=== PATIENT | female | born 1945 | race Caucasian/White ===

== ENCOUNTER 2019-05-23 17:53 | Inpatient (IN) ==
--- NOTE | 2019-05-23 18:13 | Emergency Department Note ---
Altered Mental Status HPI - General Chief Complaint: Altered Mental Status Stated Complaint: Altered loc, distended abdomen, low sats Time Seen by Provider: 05/23/19 18:00 Source: EMS Mode of arrival: EMS Limitations: altered mental status - History of Present Illness HPI Narrative: Patient [facility] a [facility] for decreased LOC. She is being treated for UTI. She has had a low-grade fever and some hypoxia. She is very slow at answering questions and seems very lethargic. - Related Data Home Medications Medication Instructions Recorded Confirmed acetaminophen 500 mg tablet 1,000 mg PO QID PRN tab 07/08/16 05/21/19 albuterol sulfate 2 mg tablet 4 mg PO PRN tab 07/08/16 05/21/19 amlodipine 10 mg tablet See Rx Instructions PO .COMPLEX 07/08/16 05/21/19 atorvastatin 40 mg tablet 40 mg PO QDAY 07/08/16 05/21/19 cholecalciferol (vitamin D3) 2,000 4,000 unit PO QDAY 07/08/16 05/21/19 unit tablet hydrocodone 7.5 mg-acetaminophen 1 tab PO Q4H PRN tab 07/08/16 05/21/19 325 mg tablet pantoprazole 40 mg tablet,delayed 40 mg PO BID tab 07/08/16 05/21/19 release levothyroxine 100 mcg capsule 100 mcg PO QDAY 07/18/16 05/21/19 acyclovir 400 mg tablet 400 mg PO QDAY tab 05/22/17 05/21/19 citalopram 10 mg tablet 10 mg PO QDAY 05/22/17 05/21/19 fentanyl 12 mcg/hr transdermal 1 patch TRANSDERMA Q72H 05/21/19 05/21/19 patch nitrofurantoin 100 mg PO BID 05/21/19 05/21/19 monohydrate/macrocrystals 100 mg capsule potassium chloride 10 mEq 10 meq PO QDAY 05/21/19 05/21/19 tablet,extended release(part/cryst) prednisolone acetate (PF) 1 % eye 1 drp OPHTHALMIC QID 05/21/19 05/21/19 drops,suspension Previous Rx's Medication Instructions Recorded mycophenolate mofetil 500 mg tablet See Rx Instructions .ROUTE 01/22/19 .COMPLEX #180 tablet Allergies Allergy/AdvReac Type Severity Reaction Status Date / Time codeine Allergy Unknown Unknown Verified 05/23/19 17:53 latex Allergy Unknown Unknown Verified 05/23/19 18:01 morphine Allergy Unknown Unknown Verified 05/23/19 17:53 NSAIDS (Non-Steroidal Allergy Unknown Unknown Verified 05/23/19 18:02 Anti-Inflamma oxycodone Allergy Unknown Unknown Verified 05/23/19 18:02 Penicillins Allergy Unknown Unknown Verified 05/23/19 17:53 propoxyphene [From Darvon] Allergy Unknown Unknown Verified 05/23/19 17:53 Sulfa (Sulfonamide Allergy Unknown Unknown Verified 05/23/19 17:53 Antibiotics) bandaid adhesive Allergy Unknown Unknown Uncoded 05/21/19 11:12 Review of Systems All systems ED: reviewed and negative except as stated. Past Medical History - Past Medical History PMFSH Narrative: Medical History (Last Reviewed 05/21/19 @ 11:39 by Arie Hoffmann MD) Right hip pain (Acute) Polyarthralgia (Acute) Back pain (Chronic) Encounter for long-term current use of high risk medication (Acute) Pain, eye, right (Chronic) Seronegative rheumatoid arthritis (Chronic) Inflammatory eye disease (Chronic) Cataract (Chronic) Whiplash (Chronic) Soft tissue swelling (Chronic) Shingles (Chronic) Rheumatoid arthritis (Acute) Thrombocythemia (Chronic) Vitamin D deficiency (Chronic) Long-term use of high-risk medication (Chronic) Asthma (Chronic) Osteoarthritis (Acute) [place] (Chronic) Migraine headache (Chronic) Bleeding stomach ulcer (Chronic) Castleman's disease (Chronic) Past Surgical History (Last Reviewed 05/21/19 @ 11:32 by Arie Hoffmann MD) History of (Chronic) History of arthroscopic knee surgery (Chronic) History of carpal tunnel release (Chronic) History of knee replacement (Chronic) History of partial gastrectomy (Chronic) History of repair of right rotator cuff (Chronic) History of right shoulder replacement (Chronic) History of surgery (Chronic) History of surgery (Chronic) History of surgical fusion joint (Chronic) History of total knee arthroplasty (Chronic) Family History (Last Reviewed 05/21/19 @ 11:32 by Arie Hoffmann MD) Family/Other Cancer Brother Leukemia Family/Other Leukemia Family/Other Alcoholism Family/Other Asthma Mother Diabetes Father Heart disease Myocardial infarction Family/Other Stroke - Social History smoking status: Never smoker Physical Exam Limitations: altered mental status General appearance: lethargic, sleepy Head: atraumatic, normocephalic Eye: Present: normal appearance ENT: Present: mucous membranes dry Neck: Present: normal inspection Chest: Present: normal inspection Respiratory: Present: rales/crackles Cardiovascular: Present: regular rate, normal rhythm, normal heart sounds Abdominal: Present: soft. Absent: distention, tenderness Skin: Present: warm, dry Course Vital Signs Temperature 99.4 F H 05/23/19 17:54 Pulse Rate 93 H 05/23/19 17:54 Respiratory Rate 34 H 05/23/19 17:54 Blood Pressure 146/66 05/23/19 17:54 Pulse Oximetry (%) 88 L 05/23/19 17:54 Temperature 99.4 F H 05/23/19 17:54 Pulse Rate 88 05/23/19 21:31 Respiratory Rate 38 H 05/23/19 21:31 Blood Pressure 138/61 05/23/19 21:31 Pulse Oximetry (%) 93 05/23/19 21:31 Altered Mental Status - MDM Narrative Medical decision making narrative: This patient appears to be positive for influenza B. She does have a white c ount of 23,000 [address] a negative chest CT and negative abdominal CT. She is hypoxic off oxygen and requires oxygen to remain in the 90s. She will be admitted to the hospitalist service. - Lab Data Lab results reviewed: Yes I reviewed the patient's lab results. Result diagrams: 05/23/19 18:22 05/23/19 18:21 Lab Results 05/23/19 05/23/19 05/23/19 Range/Units 18:21 18:22 18:22 WBC 20.3 H (4.5-11.0) K/mcL RBC 3.56 L (4.00-5.20) M/mcL Hgb 9.7 L (12.0-15.0) g/dL Hct 30.1 L (36.0-48.0) % MCV 84.6 (80.0-100.0) fL MCH 27.4 (26.0-34.0) pg MCHC 32.4 (31.0-36.0) g/dL RDW 14.9 H (11.5-14.5) % Plt Count 522 H (140-440) K/mcL MPV 7.0 L (7.4-10.4) fL Gran % 88.0 H (38.0-78.0) % Lymph % (Auto) 3.8 L (15.5-49.0) % Slope % (Auto) 8.1 (1.0-12.0) % Eos % (Auto) 0.1 (0.0-7.0) % Baso % (Auto) 0 (0.0-2.0) % Gran # 17.8 H (1.8-8.0) K/mcL Lymph # (Auto) 0.8 L (1.5-4.8) K/mcL Slope # (Auto) 1.7 H (0.1-0.9) K/mcL Eos # (Auto) 0 (0.0-0.7) K/mcL Baso # (Auto) 0 (0.0-0.3) K/mcL Differential Comment VBG Lactic Acid 0.9 (0.5-2.0) mmol/L Sodium 133 (133-145) mmol/L Potassium 3.5 (3.3-5.1) mmol/L Chloride 95 L (96-108) mmol/L Carbon Dioxide 23 (22-30) mmol/L Anion Gap 15.0 (8-16) BUN 24 H (8-23) mg/dl Creatinine 0.5 L (0.6-1.1) mg/dl GFR Calculation 94 Glucose 122 H (70-105) mg/dL Calcium 8.4 L (8.6-10.4) mg/dl Total Bilirubin 0.3 (0.0-1.0) mg/dL AST 19 (0-37) U/l ALT 15 (0-40) U/l Alkaline Phosphatase 149 H (39-117) U/L Troponin T (0-0.03) ng/ml NT-Pro-B Natriuret Pep 655.0 H (0-450) pg/ml Total Protein 6.3 (5.9-8.4) gm/dL Albumin 2.7 L (3.2-5.2) gm/dL Globulin 3.6 (2.2-3.7) gm/dL Albumin/Globulin Ratio 0.8 L (1.0-2.3) Urine Color Urine Appearance Urine pH (5.0-9.0) Ur Specific [place] (1.000-1.035) Urine Protein (NEG) mg/dL Urine Glucose (UA) (NEG) mg/dL Urine Ketones (NEG) mg/dL Urine Occult Blood (<0.03) mg/dL Urine Nitrate (NEG) Urine Bilirubin (NEG) mg/dL Urine Urobilinogen (NEG) mg/dL Ur Leukocyte Esterase (NEG) /uL Urine RBC (0-1) /hpf Urine WBC (0-4) /hpf Ur Squamous Epith Cells (0-4) /hpf Urine Bacteria (0) /hpf Urine Mucus (0) /hpf Ur Culture Indicated? 05/23/19 05/23/19 Range/Units 18:23 18:30 WBC (4.5-11.0) K/mcL RBC (4.00-5.20) M/mcL Hgb (12.0-15.0) g/dL Hct (36.0-48.0) % MCV (80.0-100.0) fL MCH (26.0-34.0) pg MCHC (31.0-36.0) g/dL RDW (11.5-14.5) % Plt Count (140-440) K/mcL MPV (7.4-10.4) fL Gran % (38.0-78.0) % Lymph % (Auto) (15.5-49.0) % Slope % (Auto) (1.0-12.0) % Eos % (Auto) (0.0-7.0) % Baso % (Auto) (0.0-2.0) % Gran # (1.8-8.0) K/mcL Lymph # (Auto) (1.5-4.8) K/mcL Slope # (Auto) (0.1-0.9) K/mcL Eos # (Auto) (0.0-0.7) K/mcL Baso # (Auto) (0.0-0.3) K/mcL Differential Comment VBG Lactic Acid (0.5-2.0) mmol/L Sodium (133-145) mmol/L Potassium (3.3-5.1) mmol/L Chloride (96-108) mmol/L Carbon Dioxide (22-30) mmol/L Anion Gap (8-16) BUN (8-23) mg/dl Creatinine (0.6-1.1) mg/dl GFR Calculation Glucose (70-105) mg/dL Calcium (8.6-10.4) mg/dl Total Bilirubin (0.0-1.0) mg/dL AST (0-37) U/l ALT (0-40) U/l Alkaline Phosphatase (39-117) U/L Troponin T < 0.01 (0-0.03) ng/ml NT-Pro-B Natriuret Pep (0-450) pg/ml Total Protein (5.9-8.4) gm/dL Albumin (3.2-5.2) gm/dL Globulin (2.2-3.7) gm/dL Albumin/Globulin Ratio (1.0-2.3) Urine Color Yellow Urine Appearance Clear Urine pH 5.0 (5.0-9.0) Ur Specific [place] 1.024 (1.000-1.035) Urine Protein 100 A (NEG) mg/dL Urine Glucose (UA) Negative (NEG) mg/dL Urine Ketones Neg (NEG) mg/dL Urine Occult Blood 0.03 A (<0.03) mg/dL Urine Nitrate Neg (NEG) Urine Bilirubin Neg (NEG) mg/dL Urine Urobilinogen Neg (NEG) mg/dL Ur Leukocyte Esterase Neg (NEG) /uL Urine RBC 1 (0-1) /hpf Urine WBC 3 (0-4) /hpf Ur Squamous Epith Cells 1 (0-4) /hpf Urine Bacteria 0 (0) /hpf Urine Mucus Few (0) /hpf Ur Culture Indicated? No - Radiology Data Radiology results reviewed: Yes I reviewed the patient's radiology results. Disposition Pt seen by LABELER/PA only: No Clinical Impression: Influenza Disposition: Xfer As Outpt/Obs ([facility]) Condition: Good Referrals: Migdalia Bourgeois MD [Primary Care Provider] - Time of Disposition: 21:53
[2019-05-23] MEDS: LACTATED RINGERS 1,000 ML IV SCH (18:19)
--- NOTE | 2019-05-23 18:21 | XRay Report ---
CLINICAL INFORMATION: sob, cough COMPARISON: 05/16/2019 FINDINGS: Borderline cardiomegaly is unchanged. Mediastinum and pulmonary vessels are normal. There is minor bibasilar atelectasis. No juan ramon infiltrates or effusions IMPRESSION: Borderline cardiomegaly and minor bibasilar atelectasis Interpreted and Authenticated by: Bienvenido Nolan 05/23/19
[2019-05-23 19:21] LABS: Appearance,Urine CLEAR; Bacteria,Urine 0 /hpf (0); Bilirubin,Urine NEG (NEG); Color,Urine YELLOW; Culture Indicated,Urine NO; Glucose,Urine (UA) NEGATIVE (NEG); Ketones,Urine NEG (NEG); Leukocyte Esterase,Urine NEG /uL (NEG); Mucus,Urine FEW /hpf (0); Nitrate,Urine NEG (NEG); Protein,Urine 100 mg/dL (NEG); Specific Gravity,Urine 1.024 (1.000-1.035); Urine Blood 0.03 mg/dL (<0.03); Urine RBC 1 /hpf (0-1); Urine Squamous Epithelial Cell 1 /hpf (0-4); Urine WBC 3 /hpf (0-4); Urobilinogen,Urine NEG (NEG)
[2019-05-23 19:30] LABS: Basophils # (Auto) 0 K/mcL (0.0-0.3); Basophils % (Auto) 0 % (0.0-2.0); Eosinophils # (Auto) 0 K/mcL (0.0-0.7); Eosinophils % (Auto) 0.1 % (0.0-7.0); Hematocrit 30.1 % (36.0-48.0); Hemoglobin 9.7 g/dL (12.0-15.0); Lymphocytes # (Auto) 0.8 K/mcL (1.5-4.8); Lymphocytes % (Auto) 3.8 % (15.5-49.0); Mean Cell Volume 84.6 fL (80.0-100.0); Mean Corpuscular HGB Conc 32.4 g/dL (31.0-36.0); Monocytes # (Auto) 1.7 K/mcL (0.1-0.9); Monocytes % (Auto) 8.1 % (1.0-12.0); Platelet Count 522 K/mcL (140-440); RBC 3.56 M/mcL (4.00-5.20); Red Cell Distribution Width 14.9 % (11.5-14.5); WBC 20.3 K/mcL (4.5-11.0)
[2019-05-23 19:36] LABS: ALT/SGPT 15 U/l (0-40); AST/SGOT 19 U/l (0-37); Albumin 2.7 gm/dL (3.2-5.2); Albumin/Globulin Ratio 0.8 (1.0-2.3); Alkaline Phosphatase 149 U/L (39-117); Bilirubin,Total 0.3 mg/dL (0.0-1.0); Blood Urea Nitrogen 24 mg/dl (8-23); Calcium 8.4 mg/dl (8.6-10.4); Carbon Dioxide 23 mmol/L (22-30); Globulin 3.6 gm/dL (2.2-3.7); Glomerular Filtration Rate 94; Glucose 122 mg/dL (70-105)
[2019-05-23 19:48] LABS: Chloride 95 mmol/L (96-108)
--- NOTE | 2019-05-24 00:21 | Internal Med History&Physical ---
Medical - H&P: HPI Patient information: Note initiated : 05/24/19 at 12:21 am Service Date, if different from initiated Date: [] Patient: Danita Casanova a 74 y/o F admitted on for Altered loc, distended abdomen, low sats. Chief Complaint: [] History of present illness: Ms. Casanova is a 74 year old F with a history of high blood pressure and CHF who [facility] due to [facility] status change. Patient is poor historian and almost all history is obtained from medical chart and the ER physician. Patient was found to to have confusion, low energy and sleepy. Patient was recently treated for UTI. Possibly she completed a course of antibiotics. In the ER, CT of the head negative for acute change. CT chest abdomen and pelvis was performed without sources of infection. Urinalysis negative. White blood cells 20.3 but lactic acid 0.9, BNP 655. I was told that patient had a positive influenza B screen. MRSA screening negative. ROS unobtainable: due to mental status Medical - H&P: PMH Problems Reviewed: Yes Medical history: High blood pressure and CHF Family history: reviewed and not pertinent (Unable to obtain due to mental status change) Social history: Unable to obtain due to mental status change Medical - H&P: Meds Home Medications Medication Instructions Recorded Confirmed Type acetaminophen 500 mg tablet 1,000 mg PO Q4-6HP PRN tab 07/08/16 05/24/19 History albuterol sulfate 2 mg tablet 4 mg PO Q6HP PRN tab 07/08/16 05/24/19 History amlodipine 10 mg tablet 10 mg PO DAILY 07/08/16 05/24/19 History atorvastatin 40 mg tablet 40 mg PO QHS 07/08/16 05/24/19 History hydrocodone 7.5 mg-acetaminophen 1 tab PO Q6HP PRN tab 07/08/16 05/24/19 History 325 mg tablet pantoprazole 40 mg tablet,delayed 40 mg PO BID tab 07/08/16 05/24/19 History release levothyroxine 100 mcg capsule 100 mcg PO QDAY 07/18/16 05/24/19 History acyclovir 400 mg tablet 400 mg PO BID tab 05/22/17 05/24/19 History mycophenolate mofetil 500 mg tablet See Rx Instructions .ROUTE 01/22/19 05/24/19 Rx .COMPLEX #180 tablet potassium chloride 10 mEq 10 meq PO QDAY 05/21/19 05/24/19 History tablet,extended release(part/cryst) prednisolone acetate (PF) 1 % eye 1 drp OPHTHALMIC QID 05/21/19 05/24/19 History drops,suspension Lisinopril [Zestril] 10 mg PO DAILY 05/23/19 05/24/19 History Cholecalciferol (Vitamin D3) [D3 1,000 unit PO DAILY 05/24/19 05/24/19 History Dots] Citalopram [Celexa] 40 mg PO DAILY 05/24/19 05/24/19 History Doxycycline Hyclate [Vibramycin] 100 mg PO BID 05/24/19 05/24/19 History Phenyleph/Mineral Oil/Petrolat 28 gm RC DAILY PRN 05/24/19 05/24/19 History [Preparation H Ointment] Allergies Allergy/AdvReac Type Severity Reaction Status Date / Time codeine Allergy Unknown Unknown Verified 05/23/19 17:53 latex Allergy Unknown Unknown Verified 05/23/19 18:01 morphine Allergy Unknown Unknown Verified 05/23/19 17:53 NSAIDS (Non-Steroidal Allergy Unknown Unknown Verified 05/23/19 18:02 Anti-Inflamma oxycodone Allergy Unknown Unknown Verified 05/23/19 18:02 Penicillins Allergy Unknown Unknown Verified 05/23/19 17:53 propoxyphene [From Darvon] Allergy Unknown Unknown Verified 05/23/19 17:53 Sulfa (Sulfonamide Allergy Unknown Unknown Verified 05/23/19 17:53 Antibiotics) bandaid adhesive Allergy Unknown Unknown Uncoded 05/21/19 11:12 Medical - H&P: Exam - Constitutional Vitals: Temp Pulse Resp BP Pulse Ox 98.6 F 90 31 H 139/110 93 05/24/19 00:01 05/24/19 00:01 05/24/19 00:01 05/24/19 00:01 05/24/19 00:01 General appearance: no acute distress (Confusion, lethargic) - Head Head exam: Present: atraumatic, normocephalic - Eye Eye exam: Absent: conjunctival injection Pupils: Present: PERRL - ENT ENT exam: Present: normal exam - Neck Neck exam: Present: normal inspection - Respiratory Respiratory exam: Present: CTAB. Absent: accessory muscle use - Cardiovascular Cardiovascular exam: Present: irregular rhythm. Absent: JVD - GI/Abdominal GI/Abdominal exam: Present: normal bowel sounds, soft. Absent: tenderness - Extremities Exam Extremities exam: Absent: pedal edema, tenderness, Paul's sign - Neurological Exam Neurological exam: Absent: motor sensory deficit (Confusion, lethargic, does not seem to have focal neurological deficits) - Psychiatric Psychiatric exam: Present: normal affect (Lethargic) Medical - H&P: Reslt - Labs CBC & Chem 7: 05/23/19 18:22 05/24/19 04:08 Labs: Short CBC 05/23/19 Range/Units 18:22 WBC 20.3 H (4.5-11.0) K/mcL Hgb 9.7 L (12.0-15.0) g/dL Hct 30.1 L (36.0-48.0) % Plt Count 522 H (140-440) K/mcL BMP 05/23/19 18:21 Sodium 133 Potassium 3.5 Chloride 95 L Carbon Dioxide 23 BUN 24 H Creatinine 0.5 L Glucose 122 H Calcium 8.4 L Cardiac Enzymes 05/23/19 Range/Units 18:23 Troponin T < 0.01 (0-0.03) ng/ml Liver Function 05/23/19 Range/Units 18:21 Total Bilirubin 0.3 (0.0-1.0) mg/dL AST 19 (0-37) U/l ALT 15 (0-40) U/l Alkaline Phosphatase 149 H (39-117) U/L Albumin 2.7 L (3.2-5.2) gm/dL Urine 05/23/19 Range/Units 18:30 Urine Color Yellow Urine Appearance Clear Urine pH 5.0 (5.0-9.0) Ur Specific [place] 1.024 (1.000-1.035) Urine Protein 100 A (NEG) mg/dL Urine Glucose (UA) Negative (NEG) mg/dL Medical - H&P: A/P - Narrative A/P Narrative: Assessment: 1. Sepsis? Source of infection has not identified 2. Positive for influenza B 3. HTN 4. Acute on chronic CHF 5. Leukocytosis Plan: 1. Admitted to the ICU as an inpatient because I feel patient should need to stay in the hospital more than 2 midnights 2. Clinical picture compatible with sepsis but no sources of infection is identified. Procalcitonin negative. Her white blood cells almost 20. Her home medications include mycophenolate. Do not know much about her history. I would like to start her on Levaquin (allergic to many medications)n closely monitor 3. Tamiflu was started. Repeat influenza screening (I do not see the result) 4. BNP 655, echocardiogram was ordered. Intake and output, daily weight. I do not want to give the patient Lasix now. I will reeval the patient 5. DVT prophylaxis: Lovenox Disposition: PT OT
[2019-05-24] MEDS ORDERED: ONDANSETRON 4 MG/2 ML VIAL IV PRN ×3 (00:41→01:11)
[2019-05-24] MEDS ORDERED: 0.9 % SODIUM CHLORIDE 1,000 ML IV SCH (00:45)
[2019-05-24] MEDS ORDERED: PIPERACILLIN SODIUM/TAZOBACTAM 3.375 GM in DEXTROSE 5% IN WATER 50 ML IV SCH ×2 (00:45→06:45)
[2019-05-24] MEDS ORDERED: amLODIPine 10 MG TABLET PO SCH (01:11)
[2019-05-24] MEDS ORDERED: LISINOPRIL 10 MG TABLET PO SCH (01:11)
[2019-05-24] MEDS ORDERED: amLODIPine 5 MG TABLET ONE (01:18)
[2019-05-24] MEDS ORDERED: LISINOPRIL 10 MG TABLET ONE (01:18)
[2019-05-24] MEDS: 0.9 % SODIUM CHLORIDE 1,000 ML IV SCH ×2 (01:21→22:43)
[2019-05-24] MEDS: LACTATED RINGERS 1,000 ML IV SCH (01:55)
[2019-05-24] MEDS: LEVOFLOXACIN 500 MG/100 ML BAG IV ONE ×2 (02:00→02:15)
[2019-05-24] MEDS: LEVOFLOXACIN 500 MG/100 ML BAG IV SCH ×3 (02:10→16:51)
--- NOTE | 2019-05-24 03:33 | Cat Scan Report ---
CLINICAL INFORMATION: Sepsis COMPARISON: Brain MRI 04/13/2017. TECHNIQUE: 2.5 mm helical slices were obtained in the skull base to vertex. Following reconstruction, axial reformatted images were reviewed at bone and parenchymal windows. The exam was performed using radiation dose optimization techniques including, but not limited to, automated exposure control, adjustment of the mA and/or kV according to patient size and use of iterative reconstruction technique. FINDINGS: The ventricles, sulci, fissures, and cisterns are symmetrically enlarged compatible with mild age-related atrophy. No extra-axial fluid collections are identified. Patchy chronic ischemic changes seen in the deep cerebral white matter as expected for age. There is no evidence of hemorrhage, mass effect, or edema. Bone windows show no osseous abnormality. IMPRESSION: Mild atrophy and patchy chronic ischemic changes in the deep cerebral white matter expected for age and stable. No evidence of infection Interpreted and Authenticated by: Bienvenido Nolan 05/24/19
--- NOTE | 2019-05-24 04:37 | Cat Scan Report ---
CLINICAL INFORMATION: Fever - source of sepsis COMPARISON: Chest CT 02/14/[address] 05/15/2019. TECHNIQUE: Enteric contrast was utilized. 80 cc of [id number]-[id number] were injected intravenously, and 50 seconds later 2.5 mm helical slices were obtained from the lung apices through the subtrochanteric regions of the femurs. Following reconstruction, 2.5 mm sagittal, coronal and axial reformatted images were processed and reviewed at multiple windows and levels. 7 mm MIP reconstructions were obtained through the lungs to optimize nodule detection.The exam was performed using radiation dose optimization techniques including, but not limited to, automated exposure control, adjustment of the mA and/or kV according to patient size and use of iterative reconstruction technique. FINDINGS: Exam is suboptimal due to inability to suspend respiration or extend arms over her head resulting in beam hardening artifact in the chest region. Exam is considered diagnostic, however Pulmonary parenchymal windows show patchy fibrosis and atelectasis in the lower lobes. No definite infiltrates or effusions. The mediastinal windows show the noncontrasted thoracic aorta and pulmonary arteries are normal in contour and caliber. A well-circumscribed inhomogeneous mass, in the AP window, was also seen on the remote CT over six years ago 02/14/2013. At that time, it measured 4 cm in diameter. On today's study, it is 4.8 cm. The extraordinarily slow growth over time militates against a malignant process. There are no other lymph nodes seen in the mediastinal, hilar or axillary region. The thyroid is grossly normal. Heart is mildly enlarged with scattered calcific plaque in the coronary arteries. Abdominal images show the noncontrast gallbladder and bile ducts, liver, both kidneys, adrenal glands, spleen, pancreas and aorta are normal in size, configuration and attenuation without focal lesion. The stomach, small and large bowel are unremarkable. There is a small periumbilical hernia - 3.2 cm containing a short segment small bowel no evidence of incarceration. No free air, free fluid, adenopathy or abscess. Pelvic images show Churchill catheter in the urinary bladder was decompressed. Postmenopausal uterus is retroflexed mildly enlarged spanning 9 x 4 cm. Neither ovary identified and are likely atrophic - as expected. Bone windows show only degenerative changes in the lumbar spine IMPRESSION: 1. No evidence of infection within the chest, abdomen or pelvis 2. 4.8 cm well-circumscribed solid mass in the AP window of the mediastinum which shows extraordinarily slow growth since a remote comparison chest CT over six years ago. At that time, it was 4 cm. This would militate against a malignant diagnosis. 3. Mildly enlarged retroflexed uterus. 4. Small periumbilical hernia containing a short segment nonincarcerated small bowel Interpreted and Authenticated by: Bienvenido Nolan 05/24/19
[2019-05-24 05:37] LABS: ALT/SGPT 17 U/l (0-40); AST/SGOT 24 U/l (0-37); Albumin 2.9 gm/dL (3.2-5.2); Albumin/Globulin Ratio 0.9 (1.0-2.3); Alkaline Phosphatase 149 U/L (39-117); Bilirubin,Total 0.3 mg/dL (0.0-1.0); Calcium 8.5 mg/dl (8.6-10.4); Carbon Dioxide 26 mmol/L (22-30); Chloride 98 mmol/L (96-108); Globulin 3.2 gm/dL (2.2-3.7); Glomerular Filtration Rate 101; Glucose 107 mg/dL (70-105)
[2019-05-24 05:40] LABS: Blood Urea Nitrogen 15 mg/dl (8-23)
[2019-05-24] MEDS: 0.9 % SODIUM CHLORIDE 10 ML SYRINGE IV SCH ×3 (05:45→22:45)
[2019-05-24] MEDS ORDERED: 0.9 % SODIUM CHLORIDE 10 ML SYRINGE IV SCH ×2 (06:00)
[2019-05-24] MEDS ORDERED: ALBUTEROL SULFATE 1 PUFF INHALER INH PRN (06:42)
[2019-05-24] MEDS ORDERED: DOCUSATE SODIUM 100 MG CAPSULE PO SCH ×2 (09:00)
[2019-05-24] MEDS ORDERED: ACYCLOVIR 400 MG TABLET PO SCH (09:00)
[2019-05-24] MEDS ORDERED: ENOXAPARIN 40 MG/0.4 ML SYRINGE SQ SCH (09:00)
[2019-05-24] MEDS: amLODIPine 10 MG TABLET PO SCH (10:03)
[2019-05-24] MEDS: ACYCLOVIR 400 MG TABLET PO SCH (10:03)
[2019-05-24] MEDS: OSELTAMIVIR PHOSPHATE 75 MG CAPSULE PO SCH ×2 (10:03→22:45)
[2019-05-24] MEDS: LISINOPRIL 10 MG TABLET PO SCH (10:03)
[2019-05-24] MEDS: ENOXAPARIN 40 MG/0.4 ML SYRINGE SQ SCH (10:04)
[2019-05-24] MEDS: CITALOPRAM 20 MG TABLET PO SCH (10:04)
[2019-05-24] MEDS: MYCOPHENOLATE 250 MG CAPSULE PO SCH ×2 (10:11→22:44)
[2019-05-24] MEDS: LEVOTHYROXINE 100 MCG TABLET PO SCH (10:16)
[2019-05-24] MEDS: ATORVASTATIN 40 MG TABLET PO SCH (10:16)
[2019-05-24] MEDS: DOCUSATE SODIUM 100 MG CAPSULE PO SCH ×2 (10:18→22:45)
[2019-05-24] MEDS: VITAMIN D3 1,000 UNIT TABLET PO SCH (10:18)
[2019-05-24] MEDS: prednisoLONE 1% OPHTH DROPS 1ML BOTTLE OU SCH ×4 (10:18→22:22)
[2019-05-24] MEDS: ACETAMINOPHEN 325 MG TABLET PO PRN ×2 (15:15→23:33)
[2019-05-24] MEDS ORDERED: SENNOSIDES 1 TABLET PO SCH ×2 (21:00)
[2019-05-24] MEDS: SENNOSIDES 1 TABLET PO SCH (22:45)
[2019-05-25 04:43] LABS: Basophils # (Auto) 0 K/mcL (0.0-0.3); Basophils % (Auto) 0.2 % (0.0-2.0); Eosinophils # (Auto) 0.1 K/mcL (0.0-0.7); Eosinophils % (Auto) 0.6 % (0.0-7.0); Granulocytes % (Auto) 88.4 % (38.0-78.0); Hematocrit 31.2 % (36.0-48.0); Hemoglobin 9.9 g/dL (12.0-15.0); Lymphocytes # (Auto) 0.9 K/mcL (1.5-4.8); Mean Cell Volume 85.9 fL (80.0-100.0); Mean Corpuscular HGB Conc 31.6 g/dL (31.0-36.0); Mean Platelet Volume 7.5 fL (7.4-10.4); Monocytes % (Auto) 5.8 % (1.0-12.0); Platelet Count 483 K/mcL (140-440); RBC 3.63 M/mcL (4.00-5.20); Red Cell Distribution Width 14.7 % (11.5-14.5); WBC 17.4 K/mcL (4.5-11.0)
[2019-05-25 05:10] LABS: ALT/SGPT 36 U/l (0-40); AST/SGOT 42 U/l (0-37); Albumin 2.6 gm/dL (3.2-5.2); Albumin/Globulin Ratio 0.8 (1.0-2.3); Alkaline Phosphatase 146 U/L (39-117); Bilirubin,Total 0.3 mg/dL (0.0-1.0); Blood Urea Nitrogen 8 mg/dl (8-23); Calcium 8.7 mg/dl (8.6-10.4); Carbon Dioxide 27 mmol/L (22-30); Chloride 98 mmol/L (96-108); Globulin 3.1 gm/dL (2.2-3.7); Glucose 106 mg/dL (70-105)
[2019-05-25 05:11] LABS: Glomerular Filtration Rate 111
[2019-05-25] MEDS: 0.9 % SODIUM CHLORIDE 10 ML SYRINGE IV SCH ×4 (05:47→21:11)
[2019-05-25] MEDS: MYCOPHENOLATE 250 MG CAPSULE PO SCH ×2 (09:26→21:13)
[2019-05-25] MEDS: LEVOTHYROXINE 100 MCG TABLET PO SCH (09:26)
[2019-05-25] MEDS: ACYCLOVIR 400 MG TABLET PO SCH (09:26)
[2019-05-25] MEDS: VITAMIN D3 1,000 UNIT TABLET PO SCH (09:26)
[2019-05-25] MEDS: LEVOFLOXACIN 500 MG/100 ML BAG IV SCH (09:26)
[2019-05-25] MEDS: OSELTAMIVIR PHOSPHATE 75 MG CAPSULE PO SCH (09:26)
[2019-05-25] MEDS: ENOXAPARIN 40 MG/0.4 ML SYRINGE SQ SCH (09:26)
[2019-05-25] MEDS: amLODIPine 10 MG TABLET PO SCH (09:27)
[2019-05-25] MEDS: DOCUSATE SODIUM 100 MG CAPSULE PO SCH ×2 (09:27→21:10)
[2019-05-25] MEDS: prednisoLONE 1% OPHTH DROPS 1ML BOTTLE OU SCH ×4 (09:27→21:11)
[2019-05-25] MEDS: CITALOPRAM 20 MG TABLET PO SCH (09:27)
[2019-05-25] MEDS: ATORVASTATIN 40 MG TABLET PO SCH (09:27)
[2019-05-25] MEDS: LISINOPRIL 10 MG TABLET PO SCH (09:27)
[2019-05-25] MEDS ORDERED: fentaNYL 12 MCG PATCH TOPICAL SCH (10:00)
[2019-05-25] MEDS ORDERED: VANCOMYCIN PER PHARMACY IV SCH (10:44)
--- NOTE | 2019-05-25 10:50 | Internal Med Progress Note ---
Medical - PN: Subj Patient information: Note initiated : 05/25/19 at 10:48 am Service Date, if different from initiated Date: [] Patient: Danita Casanova a 74 y/o F admitted on 05/24/19 for Altered loc, distended abdomen, low sats. Chief Complaint: [] Ms. Casanova is a 74 year old F with a history of high blood pressure and CHF who was brought to the ER from her senior living due to mental status change. Today mental status significantly improved. She does not have any complaints and feels fine. Denies fever, chills, nausea, vomiting, or dysuria. Blood culture positive for gram-positive cocci in clusters - Constitutional Vitals: Vital Signs Temp Pulse Resp BP Pulse Ox 98.8 F 92 H 25 H 141/61 94 05/25/19 08:30 05/25/19 07:42 05/25/19 08:30 05/25/19 08:30 05/25/19 08:30 Period Temp Pulse Resp BP Sys/Glasgow Pulse Ox Last 24 Hr 97.2 F-99.7 F 92-99 23-31 100-159/57-142 86-97 Intake and Output 05/24/19 05/25/19 05/25/19 21:59 05:59 13:59 Intake Total 100 1960 Output Total 503 975 513 Balance -403 985 -513 Weight 80.694 kg Intake & Output: Intake & Output 05/24/19 05/25/19 05/25/19 21:59 05:59 13:59 Intake Total 100 1960 Output Total 503 975 513 Balance -403 985 -513 Weight 80.694 kg Intake: IV 100 1000 Sodium Chloride 0.9% 1,000 ml @ 1000 50 mls/hr IV .Q20H [facility] Rx#: [id number] Oral 960 Output: Urine Catheter Amount 503 975 513 Other: Urine Appearance Clear Clear Clear Urine Color Dark Yellow Straw Bright Yellow Urine Odor Normal Normal Normal General appearance: no acute distress - Head Head exam: Present: normal inspection - Eye Eye exam: Present: EOMI, PERRL - ENT ENT exam: Present: normal exam - Neck Neck exam: Present: normal inspection - Respiratory Respiratory exam: Present: normal respiratory exam, CTAB - Cardiovascular Cardiovascular exam: Present: normal rate and rhythm. Absent: JVD - GI/Abdominal GI/Abdominal exam: Present: normal bowel sounds, soft - Extremities Exam Extremities exam: Absent: tenderness, Paul's sign - Neurological Exam Neurological exam: Present: alert. Absent: motor sensory deficit - Psychiatric Psychiatric exam: Present: normal mood - Skin Skin exam: Present: warm Medical - PN: Obj Da - Labs CBC & Chem 7: 05/25/19 03:34 05/25/19 03:34 Labs: Abnormal Lab Results 05/25/19 05/25/19 05/24/19 03:34 03:34 04:08 WBC 17.4 H RBC 3.63 L Hgb 9.9 L Hct 31.2 L RDW 14.7 H Plt Count 483 H MPV Gran % 88.4 H Lymph % (Auto) 5.0 L Gran # 15.3 H Lymph # (Auto) 0.9 L [place] # (Auto) 1.0 H Potassium 3.2 L 3.2 L Chloride BUN Creatinine 0.3 L 0.4 L Glucose 106 H 107 H Calcium 8.5 L AST 42 H Alkaline Phosphatase 146 H 149 H NT-Pro-B Natriuret Pep Total Protein 5.7 L Albumin 2.6 L 2.9 L Albumin/Globulin Ratio 0.8 L 0.9 L Urine Protein Urine Occult Blood 05/23/19 05/23/19 05/23/19 18:30 18:22 18:21 WBC 20.3 H RBC 3.56 L Hgb 9.7 L Hct 30.1 L RDW 14.9 H Plt Count 522 H MPV 7.0 L Gran % 88.0 H Lymph % (Auto) 3.8 L Gran # 17.8 H Lymph # (Auto) 0.8 L [place] # (Auto) 1.7 H Potassium Chloride 95 L BUN 24 H Creatinine 0.5 L Glucose 122 H Calcium 8.4 L AST Alkaline Phosphatase 149 H NT-Pro-B Natriuret Pep 655.0 H Total Protein Albumin 2.7 L Albumin/Globulin Ratio 0.8 L Urine Protein 100 A Urine Occult Blood 0.03 A Meds: Medications Acetaminophen (Tylenol) 650 mg PO Q4-6HP PRN; Protocol PRN Reason: Per Pain Protocol/Fever > 101 Last Admin: 05/24/19 23:33 Dose: 650 mg Documented by: Acyclovir (Zovirax) 400 mg PO QDAY [facility]; Protocol Last Admin: 05/25/19 09:26 Dose: 400 mg Documented by: Albuterol Sulfate (Ventolin) 1 puff INH Q4HP PRN PRN Reason: Shortness Of Breath Amlodipine Besylate (Norvasc) 10 mg PO DAILY [facility] Last Admin: 05/25/19 09:27 Dose: 10 mg Documented by: Atorvastatin Calcium (Lipitor) 40 mg PO QDAY [facility] Last Admin: 05/25/19 09:27 Dose: 40 mg Documented by: Citalopram Hydrobromide (Celexa) 40 mg PO QDAY [facility] Last Admin: 05/25/19 09:27 Dose: 40 mg Documented by: Docusate Sodium (Colace) 100 mg PO BID [facility] Last Admin: 05/25/19 09:27 Dose: 100 mg Documented by: Enoxaparin Sodium (Lovenox) 40 mg SQ DAILY [facility] Last Admin: 05/25/19 09:26 Dose: 40 mg Documented by: Sodium Chloride (Sodium Chloride 0.9%) 1,000 mls @ 50 mls/hr IV .Q20H [facility] Last Admin: 05/24/19 22:43 Dose: 50 mls/hr Documented by: Levofloxacin (Levaquin) 500 mg in 100 mls @ 100 mls/hr IV Q24H [facility] Last Admin: 05/25/19 09:26 Dose: 100 mls/hr Documented by: Levothyroxine Sodium (Synthroid) 100 mcg PO ACB [facility] Last Admin: 05/25/19 09:26 Dose: 100 mcg Documented by: Lisinopril (Zestril) 10 mg PO DAILY [facility] Last Admin: 05/25/19 09:27 Dose: 10 mg Documented by: Mycophenolate Mofetil (Cellcept) 1,500 mg PO BID@0700,2000 [facility] Last Admin: 05/25/19 09:26 Dose: 1,500 mg Documented by: Ondansetron HCl (Zofran) 4 mg IV Q6HP PRN PRN Reason: Nausea And Vomiting Last Admin: 05/24/19 22:57 Dose: 4 mg Documented by: Oseltamivir Phosphate (Tamiflu) 75 mg PO BID [facility] Last Admin: 05/25/19 09:26 Dose: 75 mg Documented by: Potassium Chloride (Kdur) 20 meq PO TIDCC [facility] Stop: 05/26/19 08:01 Prednisolone Acetate (Pred Forte Ophth Drops) 1 gtt OU QID [facility] Last Admin: 05/25/19 09:27 Dose: Not Given Documented by: Remington (Kenneth) 2 tab PO HS [facility] Last Admin: 05/24/19 22:45 Dose: 2 tab Documented by: Sodium Chloride (Saline Flush) 10 ml IV Q8 [facility] Last Admin: 05/25/19 05:47 Dose: Not Given Documented by: Vancomycin HCl (Vancomycin Per Pharmacy) 1 order IV ONCE ONE; Protocol Stop: 05/25/19 10:45 Vitamin D (Vitamin D3) 4,000 unit PO QDAY [facility] Last Admin: 05/25/19 09:26 Dose: 4,000 unit Documented by: Medical - PN: A/P - Time Spent With Patient Total time spent is greater than 50% in coordination of care (as documented) at patient's floor/unit and/or counseling patient: - Narrative A/P Narrative: 1. Sepsis possibly secondary to bacteremia, improved 2. Positive for influenza B 3. HTN 4. Acute on chronic CHF, no evidence of CHF on echocardiogram 5. Leukocytosis 6. Bacteremia -gram-positive cocci in clusters Plan: 1. Blood culture came back today - gram-positive cocci in clusters. Her sepsis could be due to the bacteremia. Repeat blood culture Echocardiogram -normal LV and RV size and function. There is a moderate LVH Vancomycin dosing by pharmacy. Continue Levaquin (allergic to many medications) Her home medications include mycophenolate. Do not know much about her history. 2. Repeat influenza screening negative. I will discontinue Tamiflu. 3. BNP 655, echocardiogram mentioned above. 4. DVT prophylaxis: Lovenox Disposition: PT OT
[2019-05-25] MEDS: VANCOMYCIN 1,250 MG in 0.9 % SODIUM CHLORIDE 500 ML IV SCH ×3 (11:59→21:09)
[2019-05-25] MEDS ORDERED: POTASSIUM CHLORIDE 20 MEQ TABLET PO SCH (12:00)
[2019-05-25] MEDS: POTASSIUM CHLORIDE 20 MEQ TABLET PO SCH ×2 (12:41→17:50)
[2019-05-25] MEDS ORDERED: ENALAPRILAT 1.25 MG/ML VIAL IV PRN (15:48)
[2019-05-25] MEDS ORDERED: LABETALOL 5 MG/ML ML IV PRN (15:48)
--- NOTE | 2019-05-25 15:51 | Internal Med Progress Note ---
Medical - PN: Subj Patient information: Note initiated : 05/25/19 at 3:39 pm Service Date, if different from initiated Date: [] Patient: Danita Casanova a 74 y/o F admitted on 05/24/19 for Altered loc, distended abdomen, low sats. Chief Complaint: [] Interval history: Ms. Casanova is a 74 year old F with a history of high blood pressure and CHF who was brought to the ER from her care home due to mental status change. Patient is poor historian and almost all history is obtained from medical chart and the ER physician. Patient was found to to have confusion, low energy and sleepy. Patient was recently treated for UTI. Possibly she completed a course of antibiotics. In the ER, CT of the head negative for acute change. CT chest abdomen and pelvis was performed without sources of infection. Urinalysis negative. White blood cells 20.3 but lactic acid 0.9, BNP 655. I was told that patient had a positive influenza B screen. MRSA screening negative. 05/25 - Constitutional Vitals: Vital Signs Temp Pulse Resp BP Pulse Ox 98.5 F 74 27 H 149/61 98 05/25/19 12:16 05/25/19 12:16 05/25/19 12:16 05/25/19 12:16 05/25/19 12:16 Period Temp Pulse Resp BP Sys/[place]asgow Pulse Ox Last 24 Hr 97.2 F-99.7 F 74-99 23-31 119-159/57-142 86-98 Intake and Output 05/25/19 05/25/19 05/25/19 05:59 13:59 21:59 Intake Total 1960 600 Output Total 975 653 45 Balance 985 -53 -45 Intake & Output: Intake & Output 05/25/19 05/25/19 05/25/19 05:59 13:59 21:59 Intake Total 1960 600 Output Total 975 653 45 Balance 985 -53 -45 Intake: IV 1000 Sodium Chloride 0.9% 1,000 ml @ 1000 50 mls/hr IV .Q20H [facility] Rx#: [id number] Oral 960 600 Output: Urine Catheter Amount 975 653 45 Other: Meal Breakfast Percent of Meal Consumed 50% Urine Appearance Clear Clear Urine Color Straw Bright Yellow Bright Yellow Urine Odor Normal Normal Normal Exam: General: Awake, No acute Distress Eyes/N/T: EOMI, Head/Neck: neck supple, CV: irreg irreg, No murmurs, Pulm: Clear b/l, no wheezing/rhonchi/rales Abd: soft, nontender, +BS x4 Ext: no clubbing/cyanosis/edema Neuro: no focal deficits, moves all extremities, Skin: warm/dry Medical - PN: Obj Da - Labs CBC & Chem 7: 05/25/19 03:34 05/25/19 03:34 Labs: Abnormal Lab Results 05/25/19 05/25/19 05/24/19 03:34 03:34 04:08 WBC 17.4 H RBC 3.63 L Hgb 9.9 L Hct 31.2 L RDW 14.7 H Plt Count 483 H MPV Gran % 88.4 H Lymph % (Auto) 5.0 L Gran # 15.3 H Lymph # (Auto) 0.9 L [place] # (Auto) 1.0 H Potassium 3.2 L 3.2 L Chloride BUN Creatinine 0.3 L 0.4 L Glucose 106 H 107 H Calcium 8.5 L AST 42 H Alkaline Phosphatase 146 H 149 H NT-Pro-B Natriuret Pep Total Protein 5.7 L Albumin 2.6 L 2.9 L Albumin/Globulin Ratio 0.8 L 0.9 L Urine Protein Urine Occult Blood 05/23/19 05/23/19 05/23/19 18:30 18:22 18:21 WBC 20.3 H RBC 3.56 L Hgb 9.7 L Hct 30.1 L RDW 14.9 H Plt Count 522 H MPV 7.0 L Gran % 88.0 H Lymph % (Auto) 3.8 L Gran # 17.8 H Lymph # (Auto) 0.8 L [place] # (Auto) 1.7 H Potassium Chloride 95 L BUN 24 H Creatinine 0.5 L Glucose 122 H Calcium 8.4 L AST Alkaline Phosphatase 149 H NT-Pro-B Natriuret Pep 655.0 H Total Protein Albumin 2.7 L Albumin/Globulin Ratio 0.8 L Urine Protein 100 A Urine Occult Blood 0.03 A Meds: Medications Acetaminophen (Tylenol) 650 mg PO Q4-6HP PRN; Protocol PRN Reason: Per Pain Protocol/Fever > 101 Last Admin: 05/24/19 23:33 Dose: 650 mg Documented by: Acyclovir (Zovirax) 400 mg PO QDAY [facility]; Protocol Last Admin: 05/25/19 09:26 Dose: 400 mg Documented by: Albuterol Sulfate (Ventolin) 1 puff INH Q4HP PRN PRN Reason: Shortness Of Breath Amlodipine Besylate (Norvasc) 10 mg PO DAILY [facility] Last Admin: 05/25/19 09:27 Dose: 10 mg Documented by: Atorvastatin Calcium (Lipitor) 40 mg PO QDAY [facility] Last Admin: 05/25/19 09:27 Dose: 40 mg Documented by: Citalopram Hydrobromide (Celexa) 40 mg PO QDAY [facility] Last Admin: 05/25/19 09:27 Dose: 40 mg Documented by: Docusate Sodium (Colace) 100 mg PO BID [facility] Last Admin: 05/25/19 09:27 Dose: 100 mg Documented by: Enoxaparin Sodium (Lovenox) 40 mg SQ DAILY [facility] Last Admin: 05/25/19 09:26 Dose: 40 mg Documented by: Fentanyl (Duragesic) 12 mcg TOPICAL Q72H [facility] Last Admin: 05/25/19 12:28 Dose: 12 mcg Documented by: Heparin Sodium (Porcine) (Heparin Flush) 2 ml IV Q12 [facility] Sodium Chloride (Sodium Chloride 0.9%) 1,000 mls @ 50 mls/hr IV .Q20H [facility] Last Admin: 05/24/19 22:43 Dose: 50 mls/hr Documented by: Levofloxacin (Levaquin) 500 mg in 100 mls @ 100 mls/hr IV Q24H [facility] Last Admin: 05/25/19 09:26 Dose: 100 mls/hr Documented by: Vancomycin HCl 1,250 mg/ (Sodium Chloride) 500 mls @ 333.3 mls/hr IV Q12H [facility] Last Admin: 05/25/19 14:01 Dose: 333.3 mls/hr Documented by: Levothyroxine Sodium (Synthroid) 100 mcg PO ACB [facility] Last Admin: 05/25/19 09:26 Dose: 100 mcg Documented by: Lisinopril (Zestril) 10 mg PO DAILY [facility] Last Admin: 05/25/19 09:27 Dose: 10 mg Documented by: Mycophenolate Mofetil (Cellcept) 1,500 mg PO BID@0700,1999 [facility] Last Admin: 05/25/19 09:26 Dose: 1,500 mg Documented by: Ondansetron HCl (Zofran) 4 mg IV Q6HP PRN PRN Reason: Nausea And Vomiting Last Admin: 05/24/19 22:57 Dose: 4 mg Documented by: Potassium Chloride (Kdur) 20 meq PO TIDCC [facility] Stop: 05/26/19 08:01 Last Admin: 05/25/19 12:41 Dose: 20 meq Documented by: Prednisolone Acetate (Pred Forte Ophth Drops) 1 gtt OU QID [facility] Last Admin: 05/25/19 12:18 Dose: Not Given Documented by: Senna (Senokot) 2 tab PO HS [facility] Last Admin: 05/24/19 22:45 Dose: 2 tab Documented by: Sodium Chloride (Saline Flush) 10 ml IV Q8 [facility] Last Admin: 05/25/19 14:02 Dose: Not Given Documented by: Sodium Chloride (Saline Flush) 10 ml IV Q12 [facility] Vancomycin HCl (Vancomycin Per Pharmacy) 1 order IV UD [facility]; Protocol Vitamin D (Vitamin D3) 4,000 unit PO QDAY [facility] Last Admin: 05/25/19 09:26 Dose: 4,000 unit Documented by: Medical - PN: A/P - Time Spent With Patient Total time spent is greater than 50% in coordination of care (as documented) at patient's floor/unit and/or counseling patient: - Narrative A/P Narrative: Assessment: *Sepsis: *Encephalopathy: 2/2 above. Improving *Bacteremia(GPC): -echo no mention of vegetations *Influenza B: *HTN: norvasc/lisinopril *h/o diastolic CHF: *RA: follows with Dr. Hoffmann *chr pain: *Depression: *Hypothyroid: Plan: -Vanco, serial BC's -ID consult -Tamilfu -cont home norvasc/acei -ppx: Lovenox/home ppi DNR
--- NOTE | 2019-05-25 16:58 | Event Note ---
Called by Dr. Oliva. Pt with MSSA bacteremia. Stop current antibiotics. Start IV Cefazolin 2 gm q8 hrs. Repeat blood Cx every other day until negative. Full note to follow tomorrow Alexis Louis MD Infectious diseases
[2019-05-25] MEDS: PANTOPRAZOLE 40 MG TABLET PO SCH (21:09)
[2019-05-25] MEDS: SENNOSIDES 1 TABLET PO SCH (21:10)
[2019-05-26] MEDS: 0.9 % SODIUM CHLORIDE 1,000 ML IV SCH (04:49)
[2019-05-26] MEDS: 0.9 % SODIUM CHLORIDE 10 ML SYRINGE IV SCH ×5 (04:50→22:03)
[2019-05-26 06:16] LABS: Hematocrit 31.2 % (36.0-48.0); Hemoglobin 9.8 g/dL (12.0-15.0); Mean Cell Volume 85.6 fL (80.0-100.0); Mean Corpuscular HGB Conc 31.3 g/dL (31.0-36.0); Mean Platelet Volume 7.6 fL (7.4-10.4); Platelet Count 552 K/mcL (140-440); RBC 3.64 M/mcL (4.00-5.20); Red Cell Distribution Width 14.8 % (11.5-14.5); WBC 19.5 K/mcL (4.5-11.0)
[2019-05-26 06:42] LABS: ALT/SGPT 30 U/l (0-40); AST/SGOT 24 U/l (0-37); Albumin 2.6 gm/dL (3.2-5.2); Albumin/Globulin Ratio 0.8 (1.0-2.3); Alkaline Phosphatase 132 U/L (39-117); Bilirubin,Direct < 0.2 mg/dL (0.0-0.3); Bilirubin,Total 0.3 mg/dL (0.0-1.0); Calcium 8.4 mg/dl (8.6-10.4); Carbon Dioxide 27 mmol/L (22-30); Globulin 3.1 gm/dL (2.2-3.7); Glomerular Filtration Rate 111; Glucose 110 mg/dL (70-105); Lactate Dehydrogenase 237 U/L (94-250); Triglycerides 76 mg/dl (<150); Uric Acid 1.1 mg/dL (2.5-8.0)
[2019-05-26 06:46] LABS: Blood Urea Nitrogen 6 mg/dl (8-23); Chloride 94 mmol/L (96-108); Phosphorous 2.3 mg/dL (2.7-4.5)
[2019-05-26 07:50] LABS: Anisocytosis FEW (NONE SEEN); Hypochromasia FEW (NONE SEEN); Lymphocytes % 7 % (15-49); Monocytes % (Manual) 8 % (1-12); Myelocytes % 1 % (0-0); Platelet Estimate INCREASED (NORMAL); RBC Morphology ABNORM (NORMAL); Segmented Neutrophils % 84 % (38-78)
[2019-05-26] MEDS: MYCOPHENOLATE 250 MG CAPSULE PO SCH (08:30)
[2019-05-26] MEDS: ACYCLOVIR 400 MG TABLET PO SCH (08:31)
[2019-05-26] MEDS: DOCUSATE SODIUM 100 MG CAPSULE PO SCH ×2 (08:31→20:24)
[2019-05-26] MEDS: VITAMIN D3 1,000 UNIT TABLET PO SCH (08:31)
[2019-05-26] MEDS: ATORVASTATIN 40 MG TABLET PO SCH (08:31)
[2019-05-26] MEDS: CITALOPRAM 20 MG TABLET PO SCH (08:31)
[2019-05-26] MEDS: PANTOPRAZOLE 40 MG TABLET PO SCH ×2 (08:31→20:24)
[2019-05-26] MEDS: prednisoLONE 1% OPHTH DROPS 1ML BOTTLE OU SCH ×3 (08:32→14:12)
[2019-05-26] MEDS: ENOXAPARIN 40 MG/0.4 ML SYRINGE SQ SCH (08:32)
[2019-05-26] MEDS: LISINOPRIL 10 MG TABLET PO SCH (08:32)
[2019-05-26] MEDS: POTASSIUM CHLORIDE 20 MEQ TABLET PO SCH (08:32)
[2019-05-26] MEDS: amLODIPine 10 MG TABLET PO SCH (08:32)
[2019-05-26] MEDS: LEVOFLOXACIN 500 MG/100 ML BAG IV SCH (08:34)
[2019-05-26] MEDS: LEVOTHYROXINE 100 MCG TABLET PO SCH (08:39)
[2019-05-26] MEDS ORDERED: METOPROLOL TARTRATE 5 MG/5 ML VIAL IV ONE (08:56)
[2019-05-26] MEDS ORDERED: OSELTAMIVIR PHOSPHATE 75 MG CAPSULE PO SCH (09:00)
--- NOTE | 2019-05-26 09:00 | Internal Med Progress Note ---
Medical - PN: Subj Patient information: Note initiated : 05/26/19 at 8:54 am Service Date, if different from initiated Date: [] Patient: Danita Casanova a 74 y/o F admitted on 05/24/19 for Altered loc, distended abdomen, low sats. Chief Complaint: [] Interval history: Ms. Casanova is a 74 year old F with a history of high blood pressure and CHF who was brought to the ER from her skilled nursing due to mental status change. Patient is poor historian and almost all history is obtained from medical chart and the ER physician. Patient was found to to have confusion, low energy and sleepy. Patient was recently treated for UTI. Possibly she completed a course of antibiotics. In the ER, CT of the head negative for acute change. CT chest abdomen and pelvis was performed without sources of infection. Urinalysis negative. White blood cells 20.3 but lactic acid 0.9, BNP 655. I was told that patient had a positive influenza B screen. MRSA screening negative. 05/25 Today mental status significantly improved. She does not have any complaints and feels fine. Denies fever, chills, nausea, vomiting, or dysuria. Blood culture positive for gram-positive cocci in clusters 05/26 Slept well. Denies any pains or complaints this morning. Answers some simple yes/no questions and follows commands. Review of Systems: Unable to gather accurate review of systems given her advanced dementia - Constitutional Vitals: Vital Signs Temp Pulse Resp BP Pulse Ox 98.4 F 102 H 20 149/65 93 05/26/19 08:01 05/26/19 08:07 05/26/19 08:01 05/26/19 08:01 05/26/19 08:07 Period Temp Pulse Resp BP Sys/[place] Pulse Ox Last 24 Hr 97.1 F-99.6 F 45-106 18-39 128-149/46-80 89-98 Intake and Output 05/25/19 05/26/19 05/26/19 21:59 05:59 13:59 Intake Total 1959 1140 Output Total 250 1050 340 Balance 1710 90 -340 Weight 80.694 kg Intake & Output: Intake & Output 05/25/19 05/26/19 05/26/19 21:59 05:59 13:59 Intake Total 1959 1140 Output Total 250 1050 340 Balance 1710 90 -340 Weight 80.694 kg Intake: IV 1600 500 Sodium Chloride 0.9% 1,000 ml @ 1000 50 mls/hr IV .Q20H [facility] Rx#: [id number] Vancomycin 1,250 mg In Sodium 500 500 Chloride 0.9% 500 ml @ 333.3 mls/hr IV Q12H [facility] Rx#: [id number] Oral 360 640 Output: Urine Catheter Amount 250 1050 340 Other: Meal Dinner Percent of Meal Consumed 75% Urine Appearance Clear Clear Uretheral ([place]) Clear Clear Clear Urine Color Bright Yellow Bright Yellow Uretheral ([place]) Bright Yellow Bright Yellow Pale Urine Odor Normal Normal Exam: General: Awake, No acute Distress Eyes/N/T: EOMI, Head/Neck: neck supple, CV: Regular with occasional ectopic beats, 2/6 SM Pulm: Clear b/l, no wheezing/rhonchi/rales Abd: soft, nontender, +BS x4 Ext: no clubbing/cyanosis, trace b/l LE edema Neuro: no focal deficits, moves all extremities, Skin: warm/dry Medical - PN: Obj Da - Labs CBC & Chem 7: 05/26/19 04:03 05/26/19 04:03 Labs: Abnormal Lab Results 05/26/19 05/26/19 05/25/19 04:03 04:03 03:34 WBC 19.5 H RBC 3.64 L Hgb 9.8 L Hct 31.2 L RDW 14.8 H Plt Count 552 H MPV Gran % Lymph % (Auto) Gran # Lymph # (Auto) [place] # (Auto) Seg Neutrophils % 84 H Lymphocytes % 7 L Myelocytes % 1 H RBC Morphology Abnorm A Hypochromasia Few A Anisocytosis Few A Sodium 131 L Potassium 3.2 L Chloride 94 L BUN 6 L Creatinine 0.3 L 0.3 L Glucose 110 H 106 H Uric Acid 1.1 L Calcium 8.4 L Phosphorus 2.3 L AST 42 H Alkaline Phosphatase 132 H 146 H NT-Pro-B Natriuret Pep Total Protein 5.7 L 5.7 L Albumin 2.6 L 2.6 L Albumin/Globulin Ratio 0.8 L 0.8 L Urine Protein Urine Occult Blood 05/25/19 05/24/19 05/23/19 03:34 04:08 18:30 WBC 17.4 H RBC 3.63 L Hgb 9.9 L Hct 31.2 L RDW 14.7 H Plt Count 483 H MPV Gran % 88.4 H Lymph % (Auto) 5.0 L Gran # 15.3 H Lymph # (Auto) 0.9 L [place] # (Auto) 1.0 H Seg Neutrophils % Lymphocytes % Myelocytes % RBC Morphology Hypochromasia Anisocytosis Sodium Potassium 3.2 L Chloride BUN Creatinine 0.4 L Glucose 107 H Uric Acid Calcium 8.5 L Phosphorus AST Alkaline Phosphatase 149 H NT-Pro-B Natriuret Pep Total Protein Albumin 2.9 L Albumin/Globulin Ratio 0.9 L Urine Protein 100 A Urine Occult Blood 0.03 A 05/23/19 05/23/19 18:22 18:21 WBC 20.3 H RBC 3.56 L Hgb 9.7 L Hct 30.1 L RDW 14.9 H Plt Count 522 H MPV 7.0 L Gran % 88.0 H Lymph % (Auto) 3.8 L Gran # 17.8 H Lymph # (Auto) 0.8 L [place] # (Auto) 1.7 H Seg Neutrophils % Lymphocytes % Myelocytes % RBC Morphology Hypochromasia Anisocytosis Sodium Potassium Chloride 95 L BUN 24 H Creatinine 0.5 L Glucose 122 H Uric Acid Calcium 8.4 L Phosphorus AST Alkaline Phosphatase 149 H NT-Pro-B Natriuret Pep 655.0 H Total Protein Albumin 2.7 L Albumin/Globulin Ratio 0.8 L Urine Protein Urine Occult Blood Meds: Medications Acetaminophen (Tylenol) 650 mg PO Q4-6HP PRN; Protocol PRN Reason: Per Pain Protocol/Fever > 101 Last Admin: 05/24/19 23:33 Dose: 650 mg Documented by: Acyclovir (Zovirax) 400 mg PO QDAY [facility]; Protocol Last Admin: 05/26/19 08:31 Dose: 400 mg Documented by: Albuterol Sulfate (Ventolin) 1 puff INH Q4HP PRN PRN Reason: Shortness Of Breath Amlodipine Besylate (Norvasc) 10 mg PO DAILY [facility] Last Admin: 05/26/19 08:32 Dose: 10 mg Documented by: Atorvastatin Calcium (Lipitor) 40 mg PO QDAY [facility] Last Admin: 05/26/19 08:31 Dose: 40 mg Documented by: Citalopram Hydrobromide (Celexa) 40 mg PO QDAY [facility] Last Admin: 05/26/19 08:31 Dose: 40 mg Documented by: Docusate Sodium (Colace) 100 mg PO BID [facility] Last Admin: 05/26/19 08:31 Dose: 100 mg Documented by: Enalaprilat (Vasotec) 0 mg IV Q2HP PRN PRN Reason: Hypertension Enoxaparin Sodium (Lovenox) 40 mg SQ DAILY [facility] Last Admin: 05/26/19 08:32 Dose: 40 mg Documented by: Fentanyl (Duragesic) 12 mcg TOPICAL Q72H [facility] Last Admin: 05/25/19 12:28 Dose: 12 mcg Documented by: Heparin Sodium (Porcine) (Heparin Flush) 2 ml IV Q12 [facility] Last Admin: 05/26/19 08:32 Dose: Not Given Documented by: Sodium Chloride (Sodium Chloride 0.9%) 1,000 mls @ 50 mls/hr IV .Q20H [facility] Last Admin: 05/26/19 04:49 Dose: 50 mls/hr Documented by: Levofloxacin (Levaquin) 500 mg in 100 mls @ 100 mls/hr IV Q24H [facility] Last Admin: 05/26/19 08:34 Dose: 100 mls/hr Documented by: Vancomycin HCl 1,250 mg/ (Sodium Chloride) 500 mls @ 333.3 mls/hr IV Q12H [facility] Last Infusion: 05/25/19 22:00 Dose: Infused Documented by: Labetalol HCl (Trandate) 0 mg IV Q2HP PRN PRN Reason: Hypertension Levothyroxine Sodium (Synthroid) 100 mcg PO ACB [facility] Last Admin: 05/26/19 08:39 Dose: 100 mcg Documented by: Lisinopril (Zestril) 10 mg PO DAILY [facility] Last Admin: 05/26/19 08:32 Dose: 10 mg Documented by: Mycophenolate Mofetil (Cellcept) 1,500 mg PO BID@0700,2000 [facility] Last Admin: 05/26/19 08:30 Dose: 1,500 mg Documented by: Ondansetron HCl (Zofran) 4 mg IV Q6HP PRN PRN Reason: Nausea And Vomiting Last Admin: 05/24/19 22:57 Dose: 4 mg Documented by: Pantoprazole Sodium (Protonix) 40 mg PO BID [facility] Last Admin: 05/26/19 08:31 Dose: 40 mg Documented by: Prednisolone Acetate (Pred Forte Ophth Drops) 1 gtt OU QID [facility] Last Admin: 05/26/19 08:32 Dose: Not Given Documented by: Senna (Senokot) 2 tab PO HS [facility] Last Admin: 05/25/19 21:10 Dose: 2 tab Documented by: Sodium Chloride (Saline Flush) 10 ml IV Q8 [facility] Last Admin: 05/26/19 04:50 Dose: Not Given Documented by: Sodium Chloride (Saline Flush) 10 ml IV Q12 [facility] Last Admin: 05/26/19 08:33 Dose: 10 ml Documented by: Vancomycin HCl (Vancomycin Per Pharmacy) 1 order IV UD [facility]; Protocol Vitamin D (Vitamin D3) 4,000 unit PO QDAY [facility] Last Admin: 05/26/19 08:31 Dose: 4,000 unit Documented by: Medical - PN: A/P - Time Spent With Patient Total time spent is greater than 50% in coordination of care (as documented) at patient's floor/unit and/or counseling patient: - Narrative A/P Narrative: Assessment: *Sepsis: -afebrile, PCT 0.18<0.92 *Encephalopathy: 2/2 above, Improved *Bacteremia(MSSA): -echo no mention of vegetations *Influenza B(+) in ED screen: *Advanced Dementia: *HTN: norvasc/lisinopril *h/o diastolic CHF: *RA: follows with Dr. Hoffmann *chr pain: *Depression: *Hypothyroid: Plan: -Cristinao, serial BC's -ID consult -Tamiflu -cont home norvasc/acei -ppx: Lovenox/home ppi DNR
[2019-05-26] MEDS: VANCOMYCIN 1,250 MG in 0.9 % SODIUM CHLORIDE 500 ML IV SCH (10:11)
[2019-05-26] MEDS ORDERED: AMOXICILLIN 250 MG CAPSULE PO ONE (12:39)
[2019-05-26] MEDS ORDERED: EPINEPHrine 1 MG/ML AMPUL IM PRN (12:42)
[2019-05-26] MEDS ORDERED: 0.9 % SODIUM CHLORIDE 500 ML IV PRN (12:42)
[2019-05-26] MEDS ORDERED: ceFAZolin 2 GM in DEXTROSE 5% IN WATER 50 ML IV SCH (12:45)
[2019-05-26] MEDS ORDERED: CARBOXYMETHYLCELLULOSE SODIUM 1 EACH DROPER.GEL OU PRN (14:09)
[2019-05-26] MEDS ORDERED: prednisoLONE 1% OPHTH DROPS 1ML BOTTLE OU SCH (14:30)
--- NOTE | 2019-05-26 16:33 | Cat Scan Report ---
CLINICAL INFORMATION: Right hip pain. Prior cement injection COMPARISON: Abdominal /pelvic CT 05/15/2019. TECHNIQUE: 0.625 mm helical slices were obtained from the mid L4 through the subtrochanteric regions. Following reconstruction, 2.5 mm sagittal, coronal and axial reformations were processed. The exam was reviewed in bone and soft tissue windows. The exam was performed using radiation dose optimization techniques including, but not limited to, automated exposure control, adjustment of mA and/or kV according to patient size and use of iterative reconstruction technique. FINDINGS: There is a 2 x 1 cm low-attenuation region within the distal right iliopsoas tendon which is new from the previous CT. This may represent a area of inflammation or infection. Moderate degenerative changes in the right hip and mild degenerative changes in the left hip and both SI joints again noted. There is also moderate degenerative change at both L4-5 and L5-S1 facets. No focal osseous abnormalities. A small periumbilical hernia contains nonobstructed segment of small bowel. The visualized small and large bowel are normal. Churchill catheter is seen within the urinary bladder in proper position with complete bladder decompression. Slightly retroverted uterus is mildly enlarged: 9 x 3.4 cm. Region of the ovaries are normal. There is no free air, free fluid or adenopathy. Muscle and fascial planes are unremarkable. IMPRESSION: 1. No evidence of abscess 2. 2.1 cm low-attenuation focus in the distal right iliopsoas tendon - new from a CT less than two weeks ago. This could indicate a focal region infection or inflammation. 3. Moderate degenerative change right hip but no evidence of inflammatory arthritis. Mild degenerative change left hip both SI joints 4. Moderate L4-5 and L5-S1 degenerative facet disease. 5. Borderline uterine enlargement unchanged. This likely indicates adenomyosis 6. Small paraumbilical hernia containing only segments nonincarcerated small bowel. Interpreted and Authenticated by: Bienvenido Nolan 05/26/19
--- NOTE | 2019-05-26 16:38 | Antibiotic Stewardship Consult ---
Antibiotic Stewardship Consult Allergy History: Allergies Allergy/AdvReac Type Severity Reaction Status Date / Time codeine Allergy Unknown Unknown Verified 05/23/19 17:53 latex Allergy Unknown Unknown Verified 05/23/19 18:01 morphine Allergy Unknown Unknown Verified 05/23/19 17:53 NSAIDS (Non-Steroidal Allergy Unknown Unknown Verified 05/23/19 18:02 Anti-Inflamma oxycodone Allergy Unknown Unknown Verified 05/23/19 18:02 Penicillins Allergy Unknown Unknown Verified 05/26/19 12:45 propoxyphene [From Darvon] Allergy Unknown Unknown Verified 05/23/19 17:53 Sulfa (Sulfonamide Allergy Unknown Unknown Verified 05/23/19 17:53 Antibiotics) bandaid adhesive Allergy Unknown Unknown Uncoded 05/21/19 11:12 Microbiology History: Microbiology 05/25/19 12:50 Blood Culture - Preliminary Blood Gram positive cocci 05/25/19 12:05 Blood Culture - Preliminary Blood 05/24/19 01:46 Blood Culture - Preliminary Blood Staphylococcus aureus 05/24/19 01:32 Blood Culture - Preliminary Blood Gram positive cocci 05/24/19 10:46 Respiratory Virus Panel (PCR) - Final Nasopharynx 05/24/19 10:46 Respiratory Panel (PCR) - Final Nasopharynx 05/24/19 01:50 MRSA (PCR) - Final Nose - Both Right and Left Narrative: 74 year old lady admitted to hospital with right hip pain, confusion, found to have MSSA bacteremia. She is allergic to penicillin per records. Given her dementia,her (also her caregiver) mentioned that she had a reaction to penicillin as a child. The exact reaction was unknown. He added that pt had recieved oral Cephalex prior to dental extraction without any problems. A discussion about penicillin alllergy, risks of non penicillin antibiotics was undertaken with pt's . Discussed that pt is a low-risk for low-dose oral penicillin challenge, and she is inpatient and could be easily monitored for any adverse reactions or allergic symptoms after an oral challenge. Pt's voiced understanding and consented to go ahead with 250 mg PO Amoxicillin challenge. Pt tolerated oral Amoxicillin without any problems and didnot have any allergic symptoms at 2 hours after intake of oral amoxicillin. The allergy was removed from pt's chart at 4:37 pm on 05/26/2019. Alexis Louis MD Infectious diseases
[2019-05-26] MEDS: prednisoLONE 1% OPHTH DROPS 1ML BOTTLE OD SCH (16:42)
[2019-05-26] MEDS: ceFAZolin 1 GM VIAL IV SCH ×2 (16:46→22:01)
--- NOTE | 2019-05-26 16:48 | Infectious Disease Consult ---
History of Present Illness Patient information: Note initiated : 05/26/19 at 4:38 pm Service Date, if different from initiated Date: [] Patient: Danita Casanova 74 y/o F admitted on 05/24/19 for Altered loc, distended abdomen, low sats. Chief Complaint: [] Consult date: 05/26/19 Requesting Physician: Mike Wright Reason for Consult: Staph aureus bacteremia Chief complaint: I had right hip pain History of present illness: 74 year old lady with PMHx of: - HTN - CHF - RA (On Mycophenolate per Rheum) HPI obtained from pt's as pt has dementia, confused. Per , pt had a steroid injection in right hip for chronic pain few weeks ago. He described pain being so severe, that pt's legs used to give away. However despite steroid inj, pt continued to have pain. She was briefly hospitalized at [facility] for UTI last week, following which she was sent to [facility] for conditioning. At the skilled nursing, she developed progressive confusion, for which she was transferred to [facility] on 05/24 and subseq admitted. Adm VS remarkable for tempp 99.4F, HR 93, BP 146/66, pulse ox 88%, RR 34. White blood cells 20.3 but lactic acid 0.9, BNP 655. Influenza screen +ve, RVP sent which came back neg. 2 sets of blood Cx were also sent. She was empirically started on IV Levaquin. Blood Cx came back +ve for GPC in clusters and IV Vanc was added next day. The blood Cx further resulted with Staph aureus and neg mec A gene. At time of visit, pt's added that pt had tolerated PO Cephalexin in recent past without any problems. Pt nodded that she is hurting in right hip. Per RN, no n/v, diarrhea on antibiotics. denied any skin boils. Review of Systems ROS unobtainable: due to mental status Past History Past family history: no sick contacts Past social history: lives with her in [place] Medications and Allergies Home Medications Medication Instructions Recorded Confirmed Type acetaminophen 500 mg tablet 1,000 mg PO Q4-6HP PRN tab 07/08/16 05/24/19 History albuterol sulfate 2 mg tablet 4 mg PO Q6HP PRN tab 07/08/16 05/24/19 History amlodipine 10 mg tablet 10 mg PO DAILY 07/08/16 05/24/19 History atorvastatin 40 mg tablet 40 mg PO QHS 07/08/16 05/24/19 History hydrocodone 7.5 mg-acetaminophen 1 tab PO Q6HP PRN tab 07/08/16 05/24/19 History 325 mg tablet pantoprazole 40 mg tablet,delayed 40 mg PO BID tab 07/08/16 05/24/19 History release levothyroxine 100 mcg capsule 100 mcg PO QDAY 07/18/16 05/24/19 History acyclovir 400 mg tablet 400 mg PO BID tab 05/22/17 05/24/19 History mycophenolate mofetil 500 mg tablet See Rx Instructions .ROUTE 01/22/19 05/24/19 Rx .COMPLEX #180 tablet potassium chloride 10 mEq 10 meq PO QDAY 05/21/19 05/24/19 History tablet,extended release(part/cryst) prednisolone acetate (PF) 1 % eye 1 drp OPHTHALMIC Q48 05/21/19 05/26/19 History drops,suspension Lisinopril [Zestril] 10 mg PO DAILY 05/23/19 05/24/19 History Cholecalciferol (Vitamin D3) [D3 1,000 unit PO DAILY 05/24/19 05/24/19 History Dots] Citalopram [Celexa] 40 mg PO DAILY 05/24/19 05/24/19 History Doxycycline Hyclate [Vibramycin] 100 mg PO BID 05/24/19 05/24/19 History Phenyleph/Mineral Oil/Petrolat 28 gm RC DAILY PRN 05/24/19 05/24/19 History [Preparation H Ointment] fentaNYL [Fentanyl] 12 mcg TOPICAL Q72H PRN 05/24/19 05/24/19 History Allergies Allergy/AdvReac Type Severity Reaction Status Date / Time codeine Allergy Unknown Unknown Verified 05/23/19 17:53 latex Allergy Unknown Unknown Verified 05/23/19 18:01 morphine Allergy Unknown Unknown Verified 05/23/19 17:53 NSAIDS (Non-Steroidal Allergy Unknown Unknown Verified 05/23/19 18:02 Anti-Inflamma oxycodone Allergy Unknown Unknown Verified 05/23/19 18:02 propoxyphene [From Darvon] Allergy Unknown Unknown Verified 05/23/19 17:53 Sulfa (Sulfonamide Allergy Unknown Unknown Verified 05/23/19 17:53 Antibiotics) bandaid adhesive Allergy Unknown Unknown Uncoded 05/21/19 11:12 Physical Examination Vital signs: Temp Pulse Resp BP Pulse Ox 37.1 C 104 H 16 139/66 92 05/26/19 16:05 05/26/19 13:58 05/26/19 16:05 05/26/19 16:05 05/26/19 16:05 General appearance: no acute distress Auscultation: bilateral: clear Cardiovascular: other (s1 s2 normal, no m/r/g) Gastrointestinal: normoactive bowel sounds, soft, non-tender Integumentary: normal Extremities: no edema Gait: other (pain with right hip movements, tenderness over palpation of lateral upper thigh) unable to assess due to mental status Results - Laboratory Findings CBC and BMP: 05/26/19 04:03 05/26/19 04:03 Abnormal lab findings: Abnormal Labs 05/23/19 05/23/19 05/23/19 18:21 18:22 18:30 WBC 20.3 H RBC 3.56 L Hgb 9.7 L Hct 30.1 L RDW 14.9 H Plt Count 522 H MPV 7.0 L Gran % 88.0 H Lymph % (Auto) 3.8 L Gran # 17.8 H Lymph # (Auto) 0.8 L [place] # (Auto) 1.7 H Seg Neutrophils % Lymphocytes % Myelocytes % RBC Morphology Hypochromasia Anisocytosis Sodium Potassium Chloride 95 L BUN 24 H Creatinine 0.5 L Glucose 122 H Uric Acid Calcium 8.4 L Phosphorus AST Alkaline Phosphatase 149 H NT-Pro-B Natriuret Pep 655.0 H Total Protein Albumin 2.7 L Albumin/Globulin Ratio 0.8 L Urine Protein 100 A Urine Occult Blood 0.03 A 05/24/19 05/25/19 05/25/19 04:08 03:34 03:34 WBC 17.4 H RBC 3.63 L Hgb 9.9 L Hct 31.2 L RDW 14.7 H Plt Count 483 H MPV Gran % 88.4 H Lymph % (Auto) 5.0 L Gran # 15.3 H Lymph # (Auto) 0.9 L [place] # (Auto) 1.0 H Seg Neutrophils % Lymphocytes % Myelocytes % RBC Morphology Hypochromasia Anisocytosis Sodium Potassium 3.2 L 3.2 L Chloride BUN Creatinine 0.4 L 0.3 L Glucose 107 H 106 H Uric Acid Calcium 8.5 L Phosphorus AST 42 H Alkaline Phosphatase 149 H 146 H NT-Pro-B Natriuret Pep Total Protein 5.7 L Albumin 2.9 L 2.6 L Albumin/Globulin Ratio 0.9 L 0.8 L Urine Protein Urine Occult Blood 05/26/19 05/26/19 04:03 04:03 WBC 19.5 H RBC 3.64 L Hgb 9.8 L Hct 31.2 L RDW 14.8 H Plt Count 552 H MPV Gran % Lymph % (Auto) Gran # Lymph # (Auto) [place] # (Auto) Seg Neutrophils % 84 H Lymphocytes % 7 L Myelocytes % 1 H RBC Morphology Abnorm A Hypochromasia Few A Anisocytosis Few A Sodium 131 L Potassium Chloride 94 L BUN 6 L Creatinine 0.3 L Glucose 110 H Uric Acid 1.1 L Calcium 8.4 L Phosphorus 2.3 L AST Alkaline Phosphatase 132 H NT-Pro-B Natriuret Pep Total Protein 5.7 L Albumin 2.6 L Albumin/Globulin Ratio 0.8 L Urine Protein Urine Occult Blood Microbiology: Microbiology 05/25/19 12:50 Blood Blood Culture - Preliminary Gram positive cocci 05/25/19 12:05 Blood Blood Culture - Preliminary 05/24/19 01:46 Blood Blood Culture - Preliminary Staphylococcus aureus 05/24/19 01:32 Blood Blood Culture - Preliminary Gram positive cocci 05/24/19 10:46 Nasopharynx Respiratory Virus Panel (PCR) - Final 05/24/19 10:46 Nasopharynx Respiratory Panel (PCR) - Final 05/24/19 01:50 Nose - Both Right and Left MRSA (PCR) - Final Assessment and Plan - Narrative A/P Narrative: A: 1. MSSA bacteremia: - Blood Cx +ve on 05/24 (2/2 sets) and 05/25 (1/2 sets) - likely source being MSSA translocation post-right hip steroid injection few weeks ago. Pt does have hardware in her knees, shoulders which could be potential seeding areas due to MSSA bacteremia. The 2.1 cm low-attenuation focus in the distal right iliopsoas tendon [new from a CT less than two weeks ago] is concerning and could signify iliopsoas focus of infection. - On IV Vanc since last 2 days. IV Cefazolin could be safely started as pt tolerated PO Cephalexin prior to dental procedures without any allergic symptoms. Recommendations: - Stop IV Vanc - Start IV Cefazolin 2 gm q8 hrs - repeat blood Cx 2 sets every other day until negative - although TTE neg, given multiple blood Cx, will plan for LUÍS as OP - TAMIFLU could be stopped as Respiratory viral panel was negative. The Flu antigen testing in ER was likely falsely positive - will plan for further imaging based on if blood Cx from 05/27 are positive, WBC trends. will follow Alexis Louis MD Infectious diseases
[2019-05-26] MEDS: SENNOSIDES 1 TABLET PO SCH (20:24)
[2019-05-27] MEDS: 0.9 % SODIUM CHLORIDE 1,000 ML IV SCH ×2 (05:44→09:30)
[2019-05-27] MEDS: ceFAZolin 1 GM VIAL IV SCH ×3 (05:45→22:23)
[2019-05-27] MEDS: 0.9 % SODIUM CHLORIDE 10 ML SYRINGE IV SCH ×6 (05:46→21:24)
[2019-05-27 06:43] LABS: Basophils # (Auto) 0 K/mcL (0.0-0.3); Basophils % (Auto) 0 % (0.0-2.0); Eosinophils # (Auto) 0.2 K/mcL (0.0-0.7); Eosinophils % (Auto) 0.8 % (0.0-7.0); Granulocytes % (Auto) 85.6 % (38.0-78.0); Hematocrit 31.2 % (36.0-48.0); Hemoglobin 9.9 g/dL (12.0-15.0); Lymphocytes # (Auto) 1.3 K/mcL (1.5-4.8); Lymphocytes % (Auto) 6.6 % (15.5-49.0); Mean Cell Volume 85.5 fL (80.0-100.0); Mean Corpuscular HGB Conc 31.9 g/dL (31.0-36.0); Mean Platelet Volume 7.3 fL (7.4-10.4); Monocytes # (Auto) 1.4 K/mcL (0.1-0.9); Platelet Count 590 K/mcL (140-440); RBC 3.65 M/mcL (4.00-5.20); Red Cell Distribution Width 14.9 % (11.5-14.5); WBC 20.2 K/mcL (4.5-11.0)
[2019-05-27 07:03] LABS: ALT/SGPT 24 U/l (0-40); AST/SGOT 20 U/l (0-37); Albumin 2.3 gm/dL (3.2-5.2); Albumin/Globulin Ratio 0.7 (1.0-2.3); Alkaline Phosphatase 126 U/L (39-117); Bilirubin,Direct < 0.2 mg/dL (0.0-0.3); Bilirubin,Total 0.3 mg/dL (0.0-1.0); Blood Urea Nitrogen 7 mg/dl (8-23); Calcium 8.7 mg/dl (8.6-10.4); Carbon Dioxide 26 mmol/L (22-30); Chloride 96 mmol/L (96-108); Globulin 3.5 gm/dL (2.2-3.7); Glucose 94 mg/dL (70-105); Lactate Dehydrogenase 310 U/L (94-250); Triglycerides 67 mg/dl (<150); Uric Acid 1.1 mg/dL (2.5-8.0)
[2019-05-27 07:04] LABS: Glomerular Filtration Rate 101; Phosphorous 3.1 mg/dL (2.7-4.5)
[2019-05-27] MEDS: LEVOTHYROXINE 100 MCG TABLET PO SCH (07:44)
--- NOTE | 2019-05-27 07:58 | Internal Med Progress Note ---
Medical - PN: Subj Patient information: Note initiated : 05/27/19 at 7:49 am Service Date, if different from initiated Date: [] Patient: Danita Casanova a 74 y/o F admitted on 05/24/19 for Altered loc, distended abdomen, low sats. Chief Complaint: [] Interval history: Ms. Casanova is a 74 year old F with a history of high blood pressure and CHF who was brought to the ER from her long term due to mental status change. Patient is poor historian and almost all history is obtained from medical chart and the ER physician. Patient was found to to have confusion, low energy and sleepy. Patient was recently treated for UTI. Possibly she completed a course of antibiotics. In the ER, CT of the head negative for acute change. CT chest abdomen and pelvis was performed without sources of infection. Urinalysis negative. White blood cells 20.3 but lactic acid 0.9, BNP 655. I was told that patient had a positive influenza B screen. MRSA screening negative. 05/25 Today mental status significantly improved. She does not have any complaints and feels fine. Denies fever, chills, nausea, vomiting, or dysuria. Blood culture positive for gram-positive cocci in clusters 05/26 Slept well. Denies any pains or complaints this morning. Answers some simple yes/no questions and follows commands. 05/27 No overnight events. No new complaints. CT pelvis done yesterday showed possible focus of infection or inflammation distal right iliopsoas tendon, but called radiologist who reviewed imaging and felt it was incidental and not likely infection. We will continue to monitor and repeat imaging later only if feel necessary. Review of Systems: Unable to gather accurate review of systems given her advanced dementia - Constitutional Vitals: Vital Signs Temp Pulse Resp BP Pulse Ox 99.4 F H 101 H 28 H 151/68 94 05/27/19 00:01 05/26/19 20:11 05/27/19 04:02 05/27/19 04:02 05/27/19 05:13 Period Temp Pulse Resp BP Sys/[place] Pulse Ox Last 24 Hr 96.9 F-99.4 F 94-106 16-40 118-188/52-78 92-96 Intake and Output 05/26/19 05/27/19 05/27/19 21:59 05:59 13:59 Intake Total 800 1000 Output Total 545 1000 140 Balance 255 0 -140 Weight 82.191 kg Intake & Output: Intake & Output 05/26/19 05/27/19 05/27/19 21:59 05:59 13:59 Intake Total 800 1000 Output Total 545 1000 140 Balance 255 0 -140 Weight 82.191 kg Intake: IV 600 1000 Sodium Chloride 0.9% 1,000 ml @ 1000 50 mls/hr IV .Q20H ARTURO Rx#: [id number] Vancomycin 1,250 mg In Sodium 500 Chloride 0.9% 500 ml @ 333.3 mls/hr IV Q12H ARTURO Rx#: [id number] Oral 200 Output: Urine Catheter Amount 545 1000 140 Other: Meal Dinner Percent of Meal Consumed 50% Feeding Ability Needs Supervision Urine Appearance Clear Clear Uretheral (Churchill) Clear Clear Urine Color Bright Yellow Pale Uretheral (Churchill) Pale Pale Urine Odor Normal Normal Exam: General: Awake, No acute Distress Eyes/N/T: EOMI, Head/Neck: neck supple, CV: Regular with occasional ectopic beats, 2/6 SM Pulm: Clear b/l, no wheezing/rhonchi/rales Abd: soft, nontender, +BS x4 Ext: no clubbing/cyanosis, trace b/l LE edema Neuro: no focal deficits, moves all extremities, Skin: warm/dry Medical - PN: Obj Da - Labs CBC & Chem 7: 05/27/19 03:50 05/27/19 03:50 Labs: Abnormal Lab Results 05/27/19 05/27/19 05/26/19 03:50 03:50 04:03 WBC 20.2 H RBC 3.65 L Hgb 9.9 L Hct 31.2 L RDW 14.9 H Plt Count 590 H MPV 7.3 L Gran % 85.6 H Lymph % (Auto) 6.6 L Gran # 17.3 H Lymph # (Auto) 1.3 L [place] # (Auto) 1.4 H Seg Neutrophils % Lymphocytes % Myelocytes % RBC Morphology Hypochromasia Anisocytosis Sodium 131 L Potassium Chloride 94 L BUN 7 L 6 L Creatinine 0.4 L 0.3 L Glucose 110 H Uric Acid 1.1 L 1.1 L Calcium 8.4 L Phosphorus 2.3 L AST Alkaline Phosphatase 126 H 132 H Lactate Dehydrogenase 310 H Total Protein 5.8 L 5.7 L Albumin 2.3 L 2.6 L Albumin/Globulin Ratio 0.7 L 0.8 L 05/26/19 05/25/19 05/25/19 04:03 03:34 03:34 WBC 19.5 H 17.4 H RBC 3.64 L 3.63 L Hgb 9.8 L 9.9 L Hct 31.2 L 31.2 L RDW 14.8 H 14.7 H Plt Count 552 H 483 H MPV Gran % 88.4 H Lymph % (Auto) 5.0 L Gran # 15.3 H Lymph # (Auto) 0.9 L [place] # (Auto) 1.0 H Seg Neutrophils % 84 H Lymphocytes % 7 L Myelocytes % 1 H RBC Morphology Abnorm A Hypochromasia Few A Anisocytosis Few A Sodium Potassium 3.2 L Chloride BUN Creatinine 0.3 L Glucose 106 H Uric Acid Calcium Phosphorus AST 42 H Alkaline Phosphatase 146 H Lactate Dehydrogenase Total Protein 5.7 L Albumin 2.6 L Albumin/Globulin Ratio 0.8 L Meds: Medications Acetaminophen (Tylenol) 650 mg PO Q4-6HP PRN; Protocol PRN Reason: Per Pain Protocol/Fever > 101 Last Admin: 05/24/19 23:33 Dose: 650 mg Documented by: Acyclovir (Zovirax) 400 mg PO QDAY [facility]; Protocol Last Admin: 05/26/19 08:31 Dose: 400 mg Documented by: Albuterol Sulfate (Ventolin) 1 puff INH Q4HP PRN PRN Reason: Shortness Of Breath Amlodipine Besylate (Norvasc) 10 mg PO DAILY [facility] Last Admin: 05/26/19 08:32 Dose: 10 mg Documented by: Artificial Tears (Refresh Celluvisc) 1 each OU QIDP PRN PRN Reason: DRY EYES Atorvastatin Calcium (Lipitor) 40 mg PO QDAY [facility] Last Admin: 05/26/19 08:31 Dose: 40 mg Documented by: Cefazolin Sodium (Ancef) 2 gm IV Q8H [facility] Last Admin: 05/27/19 05:45 Dose: 2 gm Documented by: Citalopram Hydrobromide (Celexa) 40 mg PO QDAY [facility] Last Admin: 05/26/19 08:31 Dose: 40 mg Documented by: Docusate Sodium (Colace) 100 mg PO BID [facility] Last Admin: 05/26/19 20:24 Dose: 100 mg Documented by: Enalaprilat (Vasotec) 0 mg IV Q2HP PRN PRN Reason: Hypertension Enoxaparin Sodium (Lovenox) 40 mg SQ DAILY [facility] Last Admin: 05/26/19 08:32 Dose: 40 mg Documented by: Fentanyl (Duragesic) 12 mcg TOPICAL Q72H [facility] Last Admin: 05/25/19 12:28 Dose: 12 mcg Documented by: Heparin Sodium (Porcine) (Heparin Flush) 2 ml IV Q12 [facility] Last Admin: 05/26/19 20:23 Dose: 2 ml Documented by: Sodium Chloride (Sodium Chloride 0.9%) 1,000 mls @ 50 mls/hr IV .Q20H [facility] Last Admin: 05/27/19 05:44 Dose: 50 mls/hr Documented by: Labetalol HCl (Trandate) 0 mg IV Q2HP PRN PRN Reason: Hypertension Levothyroxine Sodium (Synthroid) 100 mcg PO ACB [facility] Last Admin: 05/27/19 07:44 Dose: 100 mcg Documented by: Lisinopril (Zestril) 10 mg PO DAILY [facility] Last Admin: 05/26/19 08:32 Dose: 10 mg Documented by: Ondansetron HCl (Zofran) 4 mg IV Q6HP PRN PRN Reason: Nausea And Vomiting Last Admin: 05/24/19 22:57 Dose: 4 mg Documented by: Pantoprazole Sodium (Protonix) 40 mg PO BID [facility] Last Admin: 05/26/19 20:24 Dose: 40 mg Documented by: Prednisolone Acetate (Pred Forte Ophth Drops) 1 gtt OD Q48H [facility] Last Admin: 05/26/19 16:42 Dose: Not Given Documented by: Senna (Senokot) 2 tab PO HS [facility] Last Admin: 05/26/19 20:24 Dose: 2 tab Documented by: Sodium Chloride (Saline Flush) 10 ml IV Q8 [facility] Last Admin: 05/27/19 05:46 Dose: Not Given Documented by: Sodium Chloride (Saline Flush) 10 ml IV Q12 [facility] Last Admin: 05/26/19 22:02 Dose: 10 ml Documented by: Vitamin D (Vitamin D3) 4,000 unit PO QDAY [facility] Last Admin: 05/26/19 08:31 Dose: 4,000 unit Documented by: Medical - PN: A/P - Time Spent With Patient Total time spent is greater than 50% in coordination of care (as documented) at patient's floor/unit and/or counseling patient: - Narrative A/P Narrative: Assessment: *Sepsis: resolving -afebrile, PCT 0.18<0.92 *Encephalopathy: 2/2 above, Improved *Bacteremia(MSSA): -echo no mention of vegetations -CT pelvis (to look for abscess as she had recent hip injection) showed no abscess but small focus distal right iliopsoas tendon as possible infection/inflammation: discussed with radiology who reviewed imaging and felt it was more likely an incidental finding and not likely infection. *Persistent leukocytosis: *f/u PCR test negative for Influenza B, screen in ED was positive *Advanced Dementia: *HTN: norvasc/lisinopril *h/o diastolic CHF: *RA: follows with Dr. Hoffmann *chr pain: *Depression: *Hypothyroid: Plan: -Ancef, serial BC's -ID consult -Tamiflu -cont home norvasc/acei -d/c'd cellcept given infection, possibly contributing to leukocytosis as well -ppx: Lovenox/home ppi DNR
[2019-05-27 08:30] LABS: Eosinophils % (Manual) 2 % (0-7); Lymphocytes % 7 % (15-49); Metamyelocytes % 1 % (0-0); Monocytes % (Manual) 8 % (1-12); Platelet Estimate INCREASED (NORMAL); RBC Morphology NORMAL (NORMAL); Reactive Lymphocytes 1 % (0-2); Segmented Neutrophils % 81 % (38-78)
[2019-05-27] MEDS: CITALOPRAM 20 MG TABLET PO SCH (09:25)
[2019-05-27] MEDS: LACTOBACILLUS 1 CAPSULE PO SCH ×2 (09:25→21:38)
[2019-05-27] MEDS: DOCUSATE SODIUM 100 MG CAPSULE PO SCH ×2 (09:25→21:38)
[2019-05-27] MEDS: ENOXAPARIN 40 MG/0.4 ML SYRINGE SQ SCH (09:26)
[2019-05-27] MEDS: PANTOPRAZOLE 40 MG TABLET PO SCH ×2 (09:26→21:25)
[2019-05-27] MEDS: amLODIPine 10 MG TABLET PO SCH (09:26)
[2019-05-27] MEDS: ATORVASTATIN 40 MG TABLET PO SCH (09:26)
[2019-05-27] MEDS: LISINOPRIL 10 MG TABLET PO SCH (09:27)
[2019-05-27] MEDS: VITAMIN D3 1,000 UNIT TABLET PO SCH (09:27)
[2019-05-27] MEDS: ACYCLOVIR 400 MG TABLET PO SCH (09:28)
[2019-05-27] MEDS: ACETAMINOPHEN 325 MG TABLET PO PRN (19:22)
[2019-05-27] MEDS ORDERED: 0.9 % SODIUM CHLORIDE 250 ML IV ONE (20:12)
[2019-05-27] MEDS ORDERED: ALBUMIN HUMAN 12.5 GM/50 ML BAG IV ONE (20:41)
[2019-05-27] MEDS ORDERED: FUROSEMIDE 40 MG/4 ML VIAL IV ONE (20:41)
[2019-05-27] MEDS: SENNOSIDES 1 TABLET PO SCH (21:38)
[2019-05-27 22:26] LABS: C-Reactive Protein 4.9 mg/dl (0.0-0.8)
[2019-05-27 22:37] LABS: Thyroid Stimulating Hormone 0.86 uIU/ml (0.27-5.01)
[2019-05-28] MEDS: ceFAZolin 1 GM VIAL IV SCH ×3 (05:31→21:33)
[2019-05-28] MEDS: 0.9 % SODIUM CHLORIDE 10 ML SYRINGE IV SCH ×5 (05:31→20:34)
[2019-05-28 06:17] LABS: Hematocrit 31.2 % (36.0-48.0); Hemoglobin 9.7 g/dL (12.0-15.0); Mean Cell Volume 85.9 fL (80.0-100.0); Mean Corpuscular HGB Conc 31.1 g/dL (31.0-36.0); Mean Platelet Volume 7.2 fL (7.4-10.4); Platelet Count 628 K/mcL (140-440); RBC 3.63 M/mcL (4.00-5.20)
[2019-05-28 06:37] LABS: ALT/SGPT 20 U/l (0-40); AST/SGOT 20 U/l (0-37); Albumin 2.8 gm/dL (3.2-5.2); Albumin/Globulin Ratio 0.9 (1.0-2.3); Alkaline Phosphatase 110 U/L (39-117); Bilirubin,Direct < 0.2 mg/dL (0.0-0.3); Bilirubin,Total 0.3 mg/dL (0.0-1.0); Calcium 8.6 mg/dl (8.6-10.4); Carbon Dioxide 27 mmol/L (22-30); Globulin 3.2 gm/dL (2.2-3.7); Glomerular Filtration Rate 101; Glucose 98 mg/dL (70-105); Lactate Dehydrogenase 235 U/L (94-250); Phosphorous 3.6 mg/dL (2.7-4.5); Triglycerides 66 mg/dl (<150)
[2019-05-28 06:39] LABS: Blood Urea Nitrogen 13 mg/dl (8-23); Chloride 95 mmol/L (96-108)
[2019-05-28 07:12] LABS: Band Neutrophils % 1 % (0-10); Eosinophils % (Manual) 3 % (0-7); Lymphocytes % 14 % (15-49); Monocytes % (Manual) 5 % (1-12); Platelet Estimate INCREASED (NORMAL); RBC Morphology NORMAL (NORMAL); Segmented Neutrophils % 77 % (38-78)
[2019-05-28] MEDS: LEVOTHYROXINE 100 MCG TABLET PO SCH (07:20)
[2019-05-28] MEDS: VITAMIN D3 1,000 UNIT TABLET PO SCH (07:20)
[2019-05-28] MEDS: PANTOPRAZOLE 40 MG TABLET PO SCH ×2 (07:20→20:34)
[2019-05-28] MEDS: ACETAMINOPHEN 325 MG TABLET PO PRN (07:20)
[2019-05-28] MEDS ORDERED: POTASSIUM CHLORIDE 20 MEQ TABLET PO ONE (07:48)
--- NOTE | 2019-05-28 07:50 | Internal Med Progress Note ---
Medical - PN: Subj Patient information: Note initiated : 05/28/19 at 7:46 am Service Date, if different from initiated Date: [] Patient: Danita Casanova a 74 y/o F admitted on 05/24/19 for Altered loc, distended abdomen, low sats. Chief Complaint: [] Interval history: Ms. Casanova is a 74 year old F with a history of high blood pressure and CHF who was brought to the ER from her snf due to mental status change. Patient is poor historian and almost all history is obtained from medical chart and the ER physician. Patient was found to to have confusion, low energy and sleepy. Patient was recently treated for UTI. Possibly she completed a course of antibiotics. In the ER, CT of the head negative for acute change. CT chest abdomen and pelvis was performed without sources of infection. Urinalysis negative. White blood cells 20.3 but lactic acid 0.9, BNP 655. I was told that patient had a positive influenza B screen. MRSA screening negative. 05/25 Today mental status significantly improved. She does not have any complaints and feels fine. Denies fever, chills, nausea, vomiting, or dysuria. Blood culture positive for gram-positive cocci in clusters 05/26 Slept well. Denies any pains or complaints this morning. Answers some simple yes/no questions and follows commands. 05/27 No overnight events. No new complaints. CT pelvis done yesterday showed possible focus of infection or inflammation distal right iliopsoas tendon, but called radiologist who reviewed imaging and felt it was incidental and not likely infection. We will continue to monitor and repeat imaging later only if feel necessary. 05/28 Patient was lethargic last night per nursing. Fentanyl patch removed. Patient is more alert this morning. No new complaints. Review of Systems: denies headache/fever/chills/nausea/vomiting/chest or abdominal pain/cough/dyspnea/diarrhea. Otherwise see above. - Constitutional Vitals: Vital Signs Temp Pulse Resp BP Pulse Ox 99.1 F H 101 H 32 H 146/84 96 05/28/19 04:00 05/26/19 20:11 05/28/19 06:00 05/28/19 06:00 05/28/19 06:00 Period Temp Pulse Resp BP Sys/[place]asgow Pulse Ox Last 24 Hr 97.1 F-99.6 F 24-34 101-146/53-91 92-98 Intake and Output 05/27/19 05/28/19 05/28/19 21:59 05:59 13:59 Intake Total 797 Output Total 150 1520 140 Balance 647 -1520 -140 Weight 80.286 kg Intake & Output: Intake & Output 05/27/19 05/28/19 05/28/19 21:59 05:59 13:59 Intake Total 797 Output Total 150 1520 140 Balance 647 -1520 -140 Weight 80.286 kg Intake: IV 747 Sodium Chloride 0.9% 1,000 ml @ 747 50 mls/hr IV .Q20H ARTURO Rx#: [id number] Sodium Chloride 0.9% 250 ml @ 0 Wide Open IV BOLUS ONE Rx#: [id number] Oral 50 Output: Urine Catheter Amount 150 1520 140 Other: Meal Dinner Percent of Meal Consumed bites Feeding Ability Total Assistance Urine Appearance Clear Clear Clear Uretheral ([place]) Clear Urine Color Pale Straw Straw Uretheral ([place]) Pale Urine Odor Normal Normal Exam: General: Awake, No acute Distress Eyes/N/T: EOMI, Head/Neck: neck supple, CV: Regular with occasional ectopic beats, 2/6 SM Pulm: Clear b/l, no wheezing/rhonchi/rales Abd: soft, nontender, +BS x4 Ext: no clubbing/cyanosis, trace b/l LE edema Neuro: no focal deficits, moves all extremities, Skin: warm/dry Medical - PN: Obj Da - Labs CBC & Chem 7: 05/28/19 04:00 05/28/19 04:00 Labs: Abnormal Lab Results 05/28/19 05/28/19 05/27/19 04:00 04:00 22:45 WBC 17.0 H RBC 3.63 L Hgb 9.7 L Hct 31.2 L RDW 15.0 H Plt Count 628 H MPV 7.2 L Gran % Lymph % (Auto) Gran # Lymph # (Auto) [place] # (Auto) Seg Neutrophils % Lymphocytes % 14 L Metamyelocytes % Myelocytes % RBC Morphology Hypochromasia Anisocytosis ESR 97 H Sodium Potassium 3.2 L Chloride 95 L BUN Creatinine 0.4 L Glucose Uric Acid 2.0 L Calcium Phosphorus Alkaline Phosphatase Lactate Dehydrogenase C-Reactive Protein Total Protein Albumin 2.8 L Albumin/Globulin Ratio 0.9 L 05/27/19 05/27/19 05/27/19 21:04 03:50 03:50 WBC RBC Hgb Hct RDW Plt Count MPV Gran % Lymph % (Auto) Gran # Lymph # (Auto) [place] # (Auto) Seg Neutrophils % 81 H Lymphocytes % 7 L Metamyelocytes % 1 H Myelocytes % RBC Morphology Hypochromasia Anisocytosis ESR Sodium Potassium Chloride BUN 7 L Creatinine 0.4 L Glucose Uric Acid 1.1 L Calcium Phosphorus Alkaline Phosphatase 126 H Lactate Dehydrogenase 310 H C-Reactive Protein 4.9 H Total Protein 5.8 L Albumin 2.3 L Albumin/Globulin Ratio 0.7 L 05/27/19 05/26/19 05/26/19 03:50 04:03 04:03 WBC 20.2 H 19.5 H RBC 3.65 L 3.64 L Hgb 9.9 L 9.8 L Hct 31.2 L 31.2 L RDW 14.9 H 14.8 H Plt Count 590 H 552 H MPV 7.3 L Gran % 85.6 H Lymph % (Auto) 6.6 L Gran # 17.3 H Lymph # (Auto) 1.[address] [place] # (Auto) 1.4 H Seg Neutrophils % 84 H Lymphocytes % 7 L Metamyelocytes % Myelocytes % 1 H RBC Morphology Abnorm A Hypochromasia Few A Anisocytosis Few A ESR Sodium 131 L Potassium Chloride 94 L BUN 6 L Creatinine 0.3 L Glucose 110 H Uric Acid 1.1 L Calcium 8.4 L Phosphorus 2.3 L Alkaline Phosphatase 132 H Lactate Dehydrogenase C-Reactive Protein Total Protein 5.7 L Albumin 2.6 L Albumin/Globulin Ratio 0.8 L Meds: Medications Acetaminophen (Tylenol) 650 mg PO Q4-6HP PRN; Protocol PRN Reason: Per Pain Protocol/Fever > 101 Last Admin: 05/28/19 07:20 Dose: 650 mg Documented by: Acyclovir (Zovirax) 400 mg PO QDAY [facility]; Protocol Last Admin: 05/27/19 09:28 Dose: 400 mg Documented by: Albuterol Sulfate (Ventolin) 1 puff INH Q4HP PRN PRN Reason: Shortness Of Breath Amlodipine Besylate (Norvasc) 10 mg PO DAILY [facility] Last Admin: 05/27/19 09:26 Dose: 10 mg Documented by: Artificial Tears (Refresh Celluvisc) 1 each OU QIDP PRN PRN Reason: DRY EYES Atorvastatin Calcium (Lipitor) 40 mg PO QDAY [facility] Last Admin: 05/27/19 09:26 Dose: 40 mg Documented by: Cefazolin Sodium (Ancef) 2 gm IV Q8H [facility] Last Admin: 05/28/19 05:31 Dose: 2 gm Documented by: Citalopram Hydrobromide (Celexa) 40 mg PO QDAY [facility] Last Admin: 05/27/19 09:25 Dose: 40 mg Documented by: Docusate Sodium (Colace) 100 mg PO BID [facility] Last Admin: 05/27/19 21:38 Dose: 100 mg Documented by: Enalaprilat (Vasotec) 0 mg IV Q2HP PRN PRN Reason: Hypertension Enoxaparin Sodium (Lovenox) 40 mg SQ DAILY [facility] Last Admin: 05/27/19 09:26 Dose: 40 mg Documented by: Heparin Sodium (Porcine) (Heparin Flush) 2 ml IV Q12 [facility] Last Admin: 05/27/19 21:24 Dose: 2 ml Documented by: Labetalol HCl (Trandate) 0 mg IV Q2HP PRN PRN Reason: Hypertension Lactobacillus Rhamnosus (Culturelle) 1 cap PO BID [facility] Last Admin: 05/27/19 21:38 Dose: 1 cap Documented by: Levothyroxine Sodium (Synthroid) 100 mcg PO ACB [facility] Last Admin: 05/28/19 07:20 Dose: 100 mcg Documented by: Lisinopril (Zestril) 10 mg PO DAILY [facility] Last Admin: 05/27/19 09:27 Dose: 10 mg Documented by: Ondansetron HCl (Zofran) 4 mg IV Q6HP PRN PRN Reason: Nausea And Vomiting Last Admin: 05/24/19 22:57 Dose: 4 mg Documented by: Pantoprazole Sodium (Protonix) 40 mg PO BID [facility] Last Admin: 05/28/19 07:20 Dose: 40 mg Documented by: Prednisolone Acetate (Pred Forte Ophth Drops) 1 gtt OD Q48H [facility] Last Admin: 05/26/19 16:42 Dose: Not Given Documented by: Senna (Senokot) 2 tab PO HS [facility] Last Admin: 05/27/19 21:38 Dose: 2 tab Documented by: Sodium Chloride (Saline Flush) 10 ml IV Q8 [facility] Last Admin: 05/28/19 05:31 Dose: 10 ml Documented by: Sodium Chloride (Saline Flush) 10 ml IV Q12 [facility] Last Admin: 05/27/19 21:24 Dose: 10 ml Documented by: Vitamin D (Vitamin D3) 4,000 unit PO QDAY [facility] Last Admin: 05/28/19 07:20 Dose: 4,000 unit Documented by: Medical - PN: A/P - Time Spent With Patient Total time spent is greater than 50% in coordination of care (as documented) at patient's floor/unit and/or counseling patient: - Narrative A/P Narrative: Assessment: *Sepsis: -afebrile, PCT 0.18<0.92 *Encephalopathy including lethargy/weakness: 2/2 above, Improved. but more lethargic yesterday evening again (did have fentanyl patch) *Bacteremia(MSSA): -echo no mention of vegetations, good EF, no diastolic dysfxn -CT pelvis (to look for abscess as she had recent hip injection) showed no abscess but small focus distal right iliopsoas tendon as possible infection/inflammation: discussed with radiology who reviewed imaging and felt it was more likely an incidental finding and not likely infection. *Persistent leukocytosis: no bandemia, afebrile -improvement today *Oropharyngeal Dysphagia, mild: *f/u PCR test negative for Influenza B, screen in ED was positive *Advanced Dementia: *hypokalemia: *HTN/HLD: norvasc/lisinopril, statin *RA: follows with Dr. Hoffmann, on mycophenalate *chr pain: on Fentanyl Patch *Depression: on citalopram *Hypothyroid: tsh wnl *GERD: Plan: -Ancef, serial BC's -ID following -cont home norvasc/acei -hold fentanyl patch for sedation -d/c'd cellcept given infection, possibly contributing to leukocytosis as well -pt/ot/st -dysphagia diet per ST -LUÍS as outpt -ppx: Lovenox/home ppi DNR
[2019-05-28] MEDS ORDERED: POTASSIUM CHLORIDE 20 MEQ PACKET PO ONE (08:54)
[2019-05-28] MEDS: ENOXAPARIN 40 MG/0.4 ML SYRINGE SQ SCH (09:01)
[2019-05-28] MEDS: ATORVASTATIN 40 MG TABLET PO SCH (09:01)
[2019-05-28] MEDS: LISINOPRIL 10 MG TABLET PO SCH (09:01)
[2019-05-28] MEDS: amLODIPine 10 MG TABLET PO SCH (09:01)
[2019-05-28] MEDS: CITALOPRAM 20 MG TABLET PO SCH (09:01)
[2019-05-28] MEDS: DOCUSATE SODIUM 100 MG CAPSULE PO SCH ×2 (09:01→20:34)
[2019-05-28] MEDS: LACTOBACILLUS 1 CAPSULE PO SCH ×2 (09:08→20:34)
[2019-05-28] MEDS: ACYCLOVIR 400 MG TABLET PO SCH (09:08)
[2019-05-28] MEDS ORDERED: BISACODYL 10 MG SUPP.RECT PR PRN (11:08)
[2019-05-28] MEDS ORDERED: POLYETHYLENE GLYCOL 3350 17 GM PACKET PO PRN (11:09)
[2019-05-28] MEDS: MAGNESIUM HYDROXIDE 30 ML ORAL.SUSP PO PRN (12:19)
[2019-05-28] MEDS: prednisoLONE 1% OPHTH DROPS 1ML BOTTLE OD SCH (13:42)
[2019-05-28] MEDS: SENNOSIDES 1 TABLET PO SCH (20:34)
[2019-05-29] MEDS: ceFAZolin 1 GM VIAL IV SCH ×3 (05:44→21:49)
[2019-05-29] MEDS: 0.9 % SODIUM CHLORIDE 10 ML SYRINGE IV SCH ×6 (05:44→22:09)
[2019-05-29 06:33] LABS: WBC 15.9 K/mcL (4.5-11.0)
[2019-05-29 06:34] LABS: Basophils # (Auto) 0 K/mcL (0.0-0.3); Basophils % (Auto) 0.1 % (0.0-2.0); Eosinophils # (Auto) 0.2 K/mcL (0.0-0.7); Eosinophils % (Auto) 1.1 % (0.0-7.0); Granulocytes % (Auto) 81.8 % (38.0-78.0); Hematocrit 31.3 % (36.0-48.0); Hemoglobin 9.8 g/dL (12.0-15.0); Lymphocytes # (Auto) 1.6 K/mcL (1.5-4.8); Lymphocytes % (Auto) 10.3 % (15.5-49.0); Mean Cell Volume 87.2 fL (80.0-100.0); Mean Corpuscular HGB Conc 31.2 g/dL (31.0-36.0); Monocytes # (Auto) 1.1 K/mcL (0.1-0.9); Monocytes % (Auto) 6.7 % (1.0-12.0); Platelet Count 694 K/mcL (140-440); RBC 3.59 M/mcL (4.00-5.20)
[2019-05-29 06:47] LABS: Blood Urea Nitrogen 13 mg/dl (8-23); Carbon Dioxide 24 mmol/L (22-30); Chloride 98 mmol/L (96-108); Glomerular Filtration Rate 101; Glucose 86 mg/dL (70-105)
--- NOTE | 2019-05-29 08:27 | Internal Med Progress Note ---
Medical - PN: Subj Patient information: Note initiated : 05/29/19 at 8:24 am Service Date, if different from initiated Date: [] Patient: Danita Casanova a 74 y/o F admitted on 05/24/19 for Altered loc, distended abdomen, low sats. Chief Complaint: [] Interval history: Ms. Casanova is a 74 year old F with a history of high blood pressure and CHF who was brought to the ER from her skilled nursing due to mental status change. Patient is poor historian and almost all history is obtained from medical chart and the ER physician. Patient was found to to have confusion, low energy and sleepy. Patient was recently treated for UTI. Possibly she completed a course of antibiotics. In the ER, CT of the head negative for acute change. CT chest abdomen and pelvis was performed without sources of infection. Urinalysis negative. White blood cells 20.3 but lactic acid 0.9, BNP 655. I was told that patient had a positive influenza B screen. MRSA screening negative. 05/25 Today mental status significantly improved. She does not have any complaints and feels fine. Denies fever, chills, nausea, vomiting, or dysuria. Blood culture positive for gram-positive cocci in clusters 05/26 Slept well. Denies any pains or complaints this morning. Answers some simple yes/no questions and follows commands. 05/27 No overnight events. No new complaints. CT pelvis done yesterday showed possible focus of infection or inflammation distal right iliopsoas tendon, but called radiologist who reviewed imaging and felt it was incidental and not likely infection. We will continue to monitor and repeat imaging later only if feel necessary. 05/28 Patient was lethargic last night per nursing. Fentanyl patch removed. Patient is more alert this morning. No new complaints. 05/29 No overnight events. One bottle of blood cultures on positive. Will DC midline and repeat blood cultures. Patient has no new complaints. Discussed case with infectious disease. Will obtain MRI of the pelvis. Review of Systems: denies headache/fever/chills/nausea/vomiting/chest or abdominal pain/cough/dyspnea/diarrhea. Otherwise see above. - Constitutional Vitals: Vital Signs Temp Pulse Resp BP Pulse Ox 98.7 F 101 H 35 H 129/80 97 05/29/19 04:01 05/26/19 20:11 05/29/19 01:32 05/29/19 04:01 05/29/19 05:22 Period Temp Pulse Resp BP Sys/[place] Pulse Ox Last 24 Hr 98.2 F-98.9 F 18-35 106-144/53-80 93-98 Intake and Output 05/28/19 05/29/19 05/29/19 21:59 05:59 13:59 Intake Total 50 200 240 Output Total 380 560 200 Balance -330 -360 40 Weight 80.286 kg Intake & Output: Intake & Output 05/28/19 05/29/19 05/29/19 21:59 05:59 13:59 Intake Total 50 200 240 Output Total 380 560 200 Balance -330 -360 40 Weight 80.286 kg Intake: IV 50 Oral 200 240 Output: Urine Catheter Amount 380 560 200 Other: Urine Appearance Clear Clear Clear Urine Color Pale Pale Bright Yellow Urine Odor Normal Exam: General: Awake, No acute Distress Eyes/N/T: EOMI, Head/Neck: neck supple, CV: Regular with occasional ectopic beats, 2/6 SM Pulm: Clear b/l, no wheezing/rhonchi/rales Abd: soft, nontender, +BS x4 Ext: no clubbing/cyanosis, trace b/l LE edema Neuro: no focal deficits, moves all extremities, Skin: warm/dry Medical - PN: Obj Da - Labs CBC & Chem 7: 05/29/19 04:10 05/29/19 04:10 Labs: Abnormal Lab Results 05/29/19 05/29/19 05/28/19 04:10 04:10 04:00 WBC 15.9 H RBC 3.59 L Hgb 9.8 L Hct 31.3 L RDW 15.0 H Plt Count 694 H MPV 7.0 L Gran % 81.8 H Lymph % (Auto) 10.3 L Gran # 13.0 H Lymph # (Auto) [place] # (Auto) 1.1 H Seg Neutrophils % Lymphocytes % Metamyelocytes % ESR Potassium 3.2 L Chloride 95 L BUN Creatinine 0.4 L 0.4 L Uric Acid 2.0 L Alkaline Phosphatase Lactate Dehydrogenase C-Reactive Protein Total Protein Albumin 2.8 L Albumin/Globulin Ratio 0.9 L 05/28/19 05/27/19 05/27/19 04:00 22:45 21:04 WBC 17.0 H RBC 3.63 L Hgb 9.7 L Hct 31.2 L RDW 15.0 H Plt Count 628 H MPV 7.2 L Gran % Lymph % (Auto) Gran # Lymph # (Auto) [place] # (Auto) Seg Neutrophils % Lymphocytes % 14 L Metamyelocytes % ESR 97 H Potassium Chloride BUN Creatinine Uric Acid Alkaline Phosphatase Lactate Dehydrogenase C-Reactive Protein 4.9 H Total Protein Albumin Albumin/Globulin Ratio 05/27/19 05/27/19 05/27/19 03:50 03:50 03:50 WBC 20.2 H RBC 3.65 L Hgb 9.9 L Hct 31.2 L RDW 14.9 H Plt Count 590 H MPV 7.3 L Gran % 85.6 H Lymph % (Auto) 6.6 L Gran # 17.3 H Lymph # (Auto) 1.3 L [place] # (Auto) 1.4 H Seg Neutrophils % 81 H Lymphocytes % 7 L Metamyelocytes % 1 H ESR Potassium Chloride BUN 7 L Creatinine 0.4 L Uric Acid 1.1 L Alkaline Phosphatase 126 H Lactate Dehydrogenase 310 H C-Reactive Protein Total Protein 5.8 L Albumin 2.3 L Albumin/Globulin Ratio 0.7 L Meds: Medications Acetaminophen (Tylenol) 650 mg PO Q4-6HP PRN; Protocol PRN Reason: Per Pain Protocol/Fever > 101 Last Admin: 05/28/19 07:20 Dose: 650 mg Documented by: Acyclovir (Zovirax) 400 mg PO QDAY [facility]; Protocol Last Admin: 05/28/19 09:08 Dose: 400 mg Documented by: Albuterol Sulfate (Ventolin) 1 puff INH Q4HP PRN PRN Reason: Shortness Of Breath Amlodipine Besylate (Norvasc) 10 mg PO DAILY [facility] Last Admin: 05/28/19 09:01 Dose: 10 mg Documented by: Artificial Tears (Refresh Celluvisc) 1 each OU QIDP PRN PRN Reason: DRY EYES Atorvastatin Calcium (Lipitor) 40 mg PO QDAY [facility] Last Admin: 05/28/19 09:01 Dose: 40 mg Documented by: Bisacodyl (Dulcolax) 10 mg MS Q2-3DAYS PRN PRN Reason: Constipation Cefazolin Sodium (Ancef) 2 gm IV Q8H [facility] Last Admin: 05/29/19 05:44 Dose: 2 gm Documented by: Citalopram Hydrobromide (Celexa) 40 mg PO QDAY [facility] Last Admin: 05/28/19 09:01 Dose: 40 mg Documented by: Docusate Sodium (Colace) 100 mg PO BID [facility] Last Admin: 05/28/19 20:34 Dose: 100 mg Documented by: Enalaprilat (Vasotec) 0 mg IV Q2HP PRN PRN Reason: Hypertension Enoxaparin Sodium (Lovenox) 40 mg SQ DAILY [facility] Last Admin: 05/28/19 09:01 Dose: 40 mg Documented by: Heparin Sodium (Porcine) (Heparin Flush) 2 ml IV Q12 [facility] Last Admin: 05/28/19 20:33 Dose: 2 ml Documented by: Labetalol HCl (Trandate) 0 mg IV Q2HP PRN PRN Reason: Hypertension Lactobacillus Rhamnosus (Culturelle) 1 cap PO BID [facility] Last Admin: 05/28/19 20:34 Dose: 1 cap Documented by: Levothyroxine Sodium (Synthroid) 100 mcg PO ACB [facility] Last Admin: 05/28/19 07:20 Dose: 100 mcg Documented by: Lisinopril (Zestril) 10 mg PO DAILY [facility] Last Admin: 05/28/19 09:01 Dose: 10 mg Documented by: Magnesium Hydroxide (Milk Of Magnesia) 30 ml PO DAILYP PRN PRN Reason: Constipation Last Admin: 05/28/19 12:19 Dose: 30 ml Documented by: Ondansetron HCl (Zofran) 4 mg IV Q6HP PRN PRN Reason: Nausea And Vomiting Last Admin: 05/24/19 22:57 Dose: 4 mg Documented by: Pantoprazole Sodium (Protonix) 40 mg PO BID [facility] Last Admin: 05/28/19 20:34 Dose: 40 mg Documented by: Polyethylene Glycol (Miralax) 17 gm PO DAILYP PRN PRN Reason: Constipation Prednisolone Acetate (Pred Forte Ophth Drops) 1 gtt OD Q48H [facility] Last Admin: 05/28/19 13:42 Dose: 1 gtt Documented by: Senna (Senokot) 2 tab PO HS [facility] Last Admin: 05/28/19 20:34 Dose: 2 tab Documented by: Sodium Chloride (Saline Flush) 10 ml IV Q8 [facility] Last Admin: 05/29/19 05:44 Dose: 10 ml Documented by: Sodium Chloride (Saline Flush) 10 ml IV Q12 [facility] Last Admin: 05/28/19 20:34 Dose: Not Given Documented by: Vitamin D (Vitamin D3) 4,000 unit PO QDAY [facility] Last Admin: 05/28/19 07:20 Dose: 4,000 unit Documented by: Medical - PN: A/P - Time Spent With Patient Total time spent is greater than 50% in coordination of care (as documented) at patient's floor/unit and/or counseling patient: - Narrative A/P Narrative: Assessment: *Sepsis: -afebrile, PCT 0.18<0.92 *Encephalopathy including lethargy/weakness: 2/2 above, Improved. but more lethargic yesterday evening again (did have fentanyl patch) *Bacteremia(MSSA): -echo no mention of vegetations, good EF, no diastolic dysfxn -CT pelvis (to look for abscess as she had recent hip injection) showed no abscess but small focus distal right iliopsoas tendon as possible infection/inflammation: discussed with radiology who reviewed imaging and felt it was more likely an incidental finding and not likely infection. -05/27 1 bottles (+) *Persistent leukocytosis: no bandemia, afebrile -slowly improving *Oropharyngeal Dysphagia, mild: *f/u PCR test negative for Influenza B, screen in ED was positive *Advanced Dementia: *hypokalemia: resolved *HTN/HLD: norvasc/lisinopril, statin *RA: follows with Dr. Hoffmann, on mycophenalate *chr pain: on Fentanyl Patch *Depression: on citalopram *Hypothyroid: tsh wnl *GERD: Plan: -Ancef, serial BC's -ID following -d/c midline -MRI pelvis pending -cont home norvasc/acei -hold fentanyl patch for sedation -d/c'd cellcept given infection, possibly contributing to leukocytosis as well -pt/ot/st -dysphagia diet per ST -LUÍS as outpt -ppx: Lovenox/home ppi DNR
--- NOTE | 2019-05-29 08:42 | Event Note ---
Pt chart reviewed A: 1. MSSA bacteremia: - Blood Cx +ve on 05/24 (2/2 sets), 05/25 (2/2 sets) and 05/27 - likely source being MSSA translocation post-right hip steroid injection few weeks ago. Pt does have hardware in her knees, shoulders which could be potential seeding areas due to MSSA bacteremia. The 2.1 cm low-attenuation focus in the distal right iliopsoas tendon [new from a CT less than two weeks ago] is concerning and could signify iliopsoas focus of infection. - On IV Vanc for 1st 2 days of hospital stay, now on IV Cefazolin Recommendations: - Continue IV Cefazolin 2 gm q8 hrs - remove midline (placed on 05/25, when pt was still bacteremic) - repeat blood Cx 2 sets every other day until negative - although TTE neg, given multiple blood Cx, will plan for LUÍS as OP - consider CT [id number] spine to r/o any focus of infection will follow Alexis Louis MD Infectious diseases
[2019-05-29] MEDS: ENOXAPARIN 40 MG/0.4 ML SYRINGE SQ SCH (10:46)
[2019-05-29] MEDS: MAGNESIUM HYDROXIDE 30 ML ORAL.SUSP PO PRN (10:46)
[2019-05-29] MEDS: PANTOPRAZOLE 40 MG TABLET PO SCH ×2 (10:47→21:47)
[2019-05-29] MEDS: CITALOPRAM 20 MG TABLET PO SCH (10:47)
[2019-05-29] MEDS: amLODIPine 10 MG TABLET PO SCH (10:47)
[2019-05-29] MEDS: DOCUSATE SODIUM 100 MG CAPSULE PO SCH ×2 (10:47→21:48)
[2019-05-29] MEDS: LISINOPRIL 10 MG TABLET PO SCH (10:47)
[2019-05-29] MEDS: ATORVASTATIN 40 MG TABLET PO SCH (10:48)
[2019-05-29] MEDS: VITAMIN D3 1,000 UNIT TABLET PO SCH (10:55)
[2019-05-29] MEDS: ACYCLOVIR 400 MG TABLET PO SCH (10:55)
[2019-05-29] MEDS ORDERED: ACETAMINOPHEN 325 MG TABLET PO PRN (10:56)
[2019-05-29] MEDS ORDERED: BISACODYL 10 MG SUPP.RECT PR PRN (10:56)
[2019-05-29] MEDS ORDERED: ONDANSETRON 4 MG/2 ML VIAL IV PRN (10:56)
[2019-05-29] MEDS ORDERED: CARBOXYMETHYLCELLULOSE SODIUM 1 EACH DROPER.GEL OU PRN (10:56)
[2019-05-29] MEDS: LACTOBACILLUS 1 CAPSULE PO SCH ×2 (10:56→21:48)
[2019-05-29] MEDS ORDERED: LABETALOL 5 MG/ML ML IV PRN (10:56)
[2019-05-29] MEDS ORDERED: POLYETHYLENE GLYCOL 3350 17 GM PACKET PO PRN (10:56)
[2019-05-29] MEDS ORDERED: MAGNESIUM HYDROXIDE 30 ML ORAL.SUSP PO PRN (10:56)
[2019-05-29] MEDS ORDERED: ENALAPRILAT 1.25 MG/ML VIAL IV PRN (10:56)
[2019-05-29] MEDS: LEVOTHYROXINE 100 MCG TABLET PO SCH (10:56)
[2019-05-29] MEDS ORDERED: ALBUTEROL SULFATE 1 PUFF INHALER INH PRN (10:56)
[2019-05-29] MEDS ORDERED: 0.9 % SODIUM CHLORIDE 10 ML SYRINGE IV PRN (11:07)
--- NOTE | 2019-05-29 14:39 | XRay Report ---
HISTORY: PICC line placement FINDINGS: A PICC line has been inserted in the right arm. The catheter and guidewire are looped in the brachial vein. It Extends up to the axilla and then turns back into the upper arm. The lungs are clear. The heart size and pulmonary vasculature are normal. No pneumothorax or pleural effusion are present. IMPRESSION: Abnormal placement of the PICC line which is looped in the right upper arm Interpreted and Authenticated by: Jacob Mckenzie 05/29/19
[2019-05-29] MEDS: SENNOSIDES 1 TABLET PO SCH (21:48)
[2019-05-30] MEDS: ceFAZolin 1 GM VIAL IV SCH ×3 (05:00→21:53)
[2019-05-30] MEDS: 0.9 % SODIUM CHLORIDE 10 ML SYRINGE IV SCH ×7 (05:07→21:49)
[2019-05-30 06:11] LABS: Basophils # (Auto) 0 K/mcL (0.0-0.3); Basophils % (Auto) 0.2 % (0.0-2.0); Eosinophils # (Auto) 0.2 K/mcL (0.0-0.7); Granulocytes % (Auto) 82.3 % (38.0-78.0); Hematocrit 30.5 % (36.0-48.0); Hemoglobin 9.7 g/dL (12.0-15.0); Lymphocytes # (Auto) 1.7 K/mcL (1.5-4.8); Lymphocytes % (Auto) 9.8 % (15.5-49.0); Mean Cell Volume 85.6 fL (80.0-100.0); Mean Corpuscular HGB Conc 31.7 g/dL (31.0-36.0); Monocytes # (Auto) 1.1 K/mcL (0.1-0.9); Monocytes % (Auto) 6.7 % (1.0-12.0); Platelet Count 754 K/mcL (140-440); RBC 3.56 M/mcL (4.00-5.20); Red Cell Distribution Width 14.9 % (11.5-14.5)
[2019-05-30 06:32] LABS: Blood Urea Nitrogen 12 mg/dl (8-23); Calcium 9.1 mg/dl (8.6-10.4); Carbon Dioxide 25 mmol/L (22-30); Glomerular Filtration Rate 101; Glucose 87 mg/dL (70-105)
[2019-05-30 06:33] LABS: Chloride 93 mmol/L (96-108)
--- NOTE | 2019-05-30 07:22 | Internal Med Progress Note ---
Medical - PN: Subj Patient information: Note initiated : 05/30/19 at 7:17 am Service Date, if different from initiated Date: [] Patient: Danita Casanova a 74 y/o F admitted on 05/24/19 for Altered loc, distended abdomen, low sats. Chief Complaint: [] Interval history: Ms. Casanova is a 74 year old F with a history of high blood pressure and CHF who was brought to the ER from her senior care due to mental status change. Patient is poor historian and almost all history is obtained from medical chart and the ER physician. Patient was found to to have confusion, low energy and sleepy. Patient was recently treated for UTI. Possibly she completed a course of antibiotics. In the ER, CT of the head negative for acute change. CT chest abdomen and pelvis was performed without sources of infection. Urinalysis negative. White blood cells 20.3 but lactic acid 0.9, BNP 655. I was told that patient had a positive influenza B screen. MRSA screening negative. 05/25 Today mental status significantly improved. She does not have any complaints and feels fine. Denies fever, chills, nausea, vomiting, or dysuria. Blood culture positive for gram-positive cocci in clusters 05/26 Slept well. Denies any pains or complaints this morning. Answers some simple yes/no questions and follows commands. 05/27 No overnight events. No new complaints. CT pelvis done yesterday showed possible focus of infection or inflammation distal right iliopsoas tendon, but called radiologist who reviewed imaging and felt it was incidental and not likely infection. We will continue to monitor and repeat imaging later only if feel necessary. 05/28 Patient was lethargic last night per nursing. Fentanyl patch removed. Patient is more alert this morning. No new complaints. 05/29 No overnight events. One bottle of blood cultures on positive. Will DC midline and repeat blood cultures. Patient has no new complaints. Discussed case with infectious disease. Will obtain MRI of the pelvis. 05/30 Patient quiet this morning, slow to answer questions. But denies any complaints. Review of Systems: denies headache/fever/chills/nausea/vomiting/chest or abdominal pain/cough/dyspnea/diarrhea. Otherwise see above. - Constitutional Vitals: Vital Signs Temp Pulse Resp BP Pulse Ox 97.8 F 78 16 117/61 94 05/30/19 03:57 05/30/19 03:57 05/30/19 03:57 05/30/19 03:57 05/30/19 03:57 Period Temp Pulse Resp BP Sys/[place] Pulse Ox Last 24 Hr 97.6 F-99.0 F 78-106 16-22 114-155/61-70 90-97 Intake and Output 05/29/19 05/30/19 05/30/19 21:59 05:59 13:59 Intake Total 120 Output Total 800 550 Balance -680 -550 Weight 80.739 kg Intake & Output: Intake & Output 05/29/19 05/30/19 05/30/19 21:59 05:59 13:59 Intake Total 120 Output Total 800 550 Balance -680 -550 Weight 80.739 kg Intake: Oral 120 Output: Urine Catheter Amount 800 550 Other: Meal Dinner Percent of Meal Consumed 25% Feeding Ability Total Assistance Urine Appearance Clear Clear Urine Color Dark Yellow Dark Yellow Urine Odor Strong Strong Stool Size Moderate Stool Color Brown Stool Consistency Soft # Bowel Movements 1 # of times incontinent of 1 1 Bowels Exam: General: Awake, No acute Distress Eyes/N/T: EOMI, Head/Neck: neck supple, CV: Regular with occasional ectopic beats, 2/6 SM Pulm: Clear b/l, no wheezing/rhonchi/rales Abd: soft, nontender, +BS x4 Ext: no clubbing/cyanosis, trace-1+ b/l LE edema Neuro: slow to answer questions this moring, no focal deficits, moves all extremities, Skin: warm/dry Medical - PN: Obj Da - Labs CBC & Chem 7: 05/30/19 04:50 05/30/19 04:50 Labs: Abnormal Lab Results 05/30/19 05/30/19 05/29/19 04:50 04:50 04:10 WBC 17.0 H RBC 3.56 L Hgb 9.7 L Hct 30.5 L RDW 14.9 H Plt Count 754 H MPV 7.0 L Gran % 82.3 H Lymph % (Auto) 9.8 L Gran # 14.0 H [place] # (Auto) 1.1 H Seg Neutrophils % Lymphocytes % Metamyelocytes % ESR Sodium 131 L Potassium Chloride 93 L Creatinine 0.4 L 0.4 L Uric Acid C-Reactive Protein Albumin Albumin/Globulin Ratio 05/29/19 05/28/19 05/28/19 04:10 04:00 04:00 WBC 15.9 H 17.0 H RBC 3.59 L 3.63 L Hgb 9.8 L 9.7 L Hct 31.3 L 31.2 L RDW 15.0 H 15.0 H Plt Count 694 H 628 H MPV 7.0 L 7.2 L Gran % 81.8 H Lymph % (Auto) 10.3 L Gran # 13.0 H [place] # (Auto) 1.1 H Seg Neutrophils % Lymphocytes % 14 L Metamyelocytes % ESR Sodium Potassium 3.2 L Chloride 95 L Creatinine 0.4 L Uric Acid 2.0 L C-Reactive Protein Albumin 2.8 L Albumin/Globulin Ratio 0.9 L 05/27/19 05/27/19 05/27/19 22:45 21:04 03:50 WBC RBC Hgb Hct RDW Plt Count MPV Gran % Lymph % (Auto) Gran # [place] # (Auto) Seg Neutrophils % 81 H Lymphocytes % 7 L Metamyelocytes % 1 H ESR 97 H Sodium Potassium Chloride Creatinine Uric Acid C-Reactive Protein 4.9 H Albumin Albumin/Globulin Ratio Meds: Medications Acetaminophen (Tylenol) 650 mg PO Q4-6HP PRN; Protocol PRN Reason: Per Pain Protocol/Fever > 101 Acyclovir (Zovirax) 400 mg PO QDAY REPLACED BY [facility]; Protocol Albuterol Sulfate (Ventolin) 1 puff INH Q4HP PRN PRN Reason: Shortness Of Breath Amlodipine Besylate (Norvasc) 10 mg PO DAILY REPLACED BY [facility] Artificial Tears (Refresh Celluvisc) 1 each OU QIDP PRN PRN Reason: DRY EYES Atorvastatin Calcium (Lipitor) 40 mg PO QDAY REPLACED BY [facility] Bisacodyl (Dulcolax) 10 mg CA Q2-3DAYS PRN PRN Reason: Constipation Cefazolin Sodium (Ancef) 2 gm IV Q8H REPLACED BY [facility] Last Admin: 05/30/19 05:00 Dose: 2 gm Documented by: Citalopram Hydrobromide (Celexa) 40 mg PO QDAY REPLACED BY [facility] Docusate Sodium (Colace) 100 mg PO BID REPLACED BY [facility] Last Admin: 05/29/19 21:48 Dose: 100 mg Documented by: Enalaprilat (Vasotec) 0 mg IV Q2HP PRN PRN Reason: Hypertension Enoxaparin Sodium (Lovenox) 40 mg SQ DAILY REPLACED BY [facility] Heparin Sodium (Porcine) (Heparin Flush) 2 ml IV Q12 REPLACED BY [facility] Last Admin: 05/29/19 21:48 Dose: 2 ml Documented by: Labetalol HCl (Trandate) 0 mg IV Q2HP PRN PRN Reason: Hypertension Lactobacillus Rhamnosus (Culturelle) 1 cap PO BID REPLACED BY [facility] Last Admin: 05/29/19 21:48 Dose: 1 cap Documented by: Levothyroxine Sodium (Synthroid) 100 mcg PO ACB REPLACED BY [facility] Lisinopril (Zestril) 10 mg PO DAILY REPLACED BY [facility] Magnesium Hydroxide (Milk Of Magnesia) 30 ml PO DAILYP PRN PRN Reason: Constipation Ondansetron HCl (Zofran) 4 mg IV Q6HP PRN PRN Reason: Nausea And Vomiting Pantoprazole Sodium (Protonix) 40 mg PO BID REPLACED BY [facility] Last Admin: 05/29/19 21:47 Dose: 40 mg Documented by: Polyethylene Glycol (Miralax) 17 gm PO DAILYP PRN PRN Reason: Constipation Prednisolone Acetate (Pred Forte Ophth Drops) 1 gtt OD Q48H REPLACED BY [facility] Senna (Senokot) 2 tab PO HS REPLACED BY [facility] Last Admin: 05/29/19 21:48 Dose: 2 tab Documented by: Sodium Chloride (Saline Flush) 10 ml IV Q8 REPLACED BY [facility] Last Admin: 05/30/19 05:07 Dose: 10 ml Documented by: Sodium Chloride (Saline Flush) 10 ml IV Q12 REPLACED BY [facility] Last Admin: 05/29/19 22:08 Dose: Not Given Documented by: Sodium Chloride (Saline Flush) 10 ml IV UD PRN PRN Reason: FLUSH Sodium Chloride (Saline Flush) 10 ml IV Q12 REPLACED BY [facility] Last Admin: 05/29/19 22:08 Dose: Not Given Documented by: Vitamin D (Vitamin D3) 4,000 unit PO QDAY REPLACED BY [facility] Medical - PN: A/P - Time Spent With Patient Total time spent is greater than 50% in coordination of care (as documented) at patient's floor/unit and/or counseling patient: - Narrative A/P Narrative: Assessment: *Sepsis: improved -afebrile, PCT 0.18<0.92 *Encephalopathy including lethargy/weakness: 2/2 above, -Improved *Bacteremia(MSSA): -echo no mention of vegetations, good EF, no diastolic dysfxn -CT pelvis (to look for abscess as she had recent hip injection) showed no abscess but small focus distal right iliopsoas tendon as possible i nfection/inflammation: discussed with radiology who reviewed imaging and felt it was more likely an incidental finding and not likely infection. -05/27 1/ bottles (+) *Persistent leukocytosis: no bandemia, afebrile -slowly improving *Oropharyngeal Dysphagia, mild: *Advanced Dementia: *hypokalemia: resolved *HTN/HLD: norvasc/lisinopril, statin *RA: follows with Dr. Hoffmann, on mycophenalate *chr pain: on Fentanyl Patch *Depression: on citalopram *Hypothyroid: tsh wnl *GERD: *f/u PCR test negative for Influenza B, screen in ED was positive Plan: -Ancef, serial BC's -ID following -midline switched out -MRI pelvis pending -cont home norvasc/acei -hold fentanyl patch for sedation -d/c'd cellcept given infection, possibly contributing to leukocytosis as well -pt/ot/st -dysphagia diet per ST -LUÍS as outpt -ppx: Lovenox/home ppi DNR
[2019-05-30] MEDS: LISINOPRIL 10 MG TABLET PO SCH (08:30)
[2019-05-30] MEDS: PANTOPRAZOLE 40 MG TABLET PO SCH ×2 (08:30→21:44)
[2019-05-30] MEDS: CITALOPRAM 20 MG TABLET PO SCH (08:30)
[2019-05-30] MEDS: VITAMIN D3 1,000 UNIT TABLET PO SCH (08:30)
[2019-05-30] MEDS: ATORVASTATIN 40 MG TABLET PO SCH (08:31)
[2019-05-30] MEDS: LEVOTHYROXINE 100 MCG TABLET PO SCH (08:31)
[2019-05-30] MEDS: SODIUM CHLORIDE 1 GM TABLET PO SCH ×3 (08:31→21:45)
[2019-05-30] MEDS: LACTOBACILLUS 1 CAPSULE PO SCH ×2 (08:31→21:44)
[2019-05-30] MEDS: ACYCLOVIR 400 MG TABLET PO SCH (08:31)
[2019-05-30] MEDS: ENOXAPARIN 40 MG/0.4 ML SYRINGE SQ SCH (08:32)
[2019-05-30] MEDS: DOCUSATE SODIUM 100 MG CAPSULE PO SCH ×2 (08:32→21:44)
[2019-05-30] MEDS: amLODIPine 10 MG TABLET PO SCH (08:33)
[2019-05-30 08:47] LABS: C-Reactive Protein 3.2 mg/dl (0.0-0.8)
[2019-05-30] MEDS ORDERED: prednisoLONE 1% OPHTH DROPS 1ML BOTTLE OD SCH (15:30)
[2019-05-30] MEDS ORDERED: GADOBENATE DIMEGLUMINE 15 ML/VIAL IV ONE (18:16)
--- NOTE | 2019-05-30 21:18 | Infectious Disease Prog Note ---
Subjective Patient information: Note initiated : 05/30/19 at 9:15 pm Service Date, if different from initiated Date: [] Patient: Danita Casanova 74 y/o F admitted on 05/24/19 for Altered loc, distended abdomen, low sats. Chief Complaint: [] Interval history: Pt endorses pain in the right hip and belly. Denied any fever, chills, n/v. Had a loose BM this am. Objective Objective Narrative: ao x 2 chest cta s1 s2 normal bs ++ nttd power 2/5 in both lower limbs pain on movement around the right hip joint (flexion, extension, external and internal rotation) Rt arm midline - Vital Signs Vital signs: Vital Signs Temp Pulse Resp BP Pulse Ox 05/30/19 18:53 36.9 C 80 18 109/62 94 05/30/19 16:00 37.1 C 74 20 130/65 94 05/30/19 12:00 37.2 C 98 H 20 127/72 93 05/30/19 08:00 37.2 C 79 20 133/68 93 05/30/19 03:57 36.6 C 78 16 117/61 94 05/29/19 23:33 37.2 C 88 16 126/65 95 Intake and Output 05/30/19 05/30/19 05/30/19 05:59 13:59 21:59 Intake Total 240 400 Output Total 550 550 1 Balance -550 -310 399 Intake: Oral 240 200 GI Tube Flush 200 Output: Urine Catheter Amount 550 550 # of times incontinent of urine 1 Other: Meal Lunch Lunch Percent of Meal Consumed 25% 75% Feeding Ability Total Assistance Urine Appearance Clear Clear Uretheral ([place]) Clear Urine Color Dark Yellow Bright Yellow Urine Odor Strong Normal Uretheral ([place]) Normal Stool Size Moderate Moderate Stool Color Brown Brown Stool Consistency Soft Soft # of times incontinent of 1 1 Bowels Intake & Output: Intake & Output 05/30/19 05/30/19 05/30/19 05:59 13:59 21:59 Intake Total 240 400 Output Total 550 550 1 Balance -550 -310 399 Intake: Oral 240 200 GI Tube Flush 200 Output: Urine Catheter Amount 550 550 # of times incontinent of urine 1 Other: Meal Lunch Lunch Percent of Meal Consumed 25% 75% Feeding Ability Total Assistance Urine Appearance Clear Clear Uretheral ([place]) Clear Urine Color Dark Yellow Bright Yellow Urine Odor Strong Normal Uretheral ([place]) Normal Stool Size Moderate Moderate Stool Color Brown Brown Stool Consistency Soft Soft # of times incontinent of 1 1 Bowels - Lab 05/31/19 04:00 05/31/19 04:00 Most recent lab results Calcium 9.1 mg/dl (8.6-10.4) 05/30/19 04:50 Phosphorus 3.6 mg/dL (2.7-4.5) 05/28/19 04:00 Magnesium 2.1 mg/dL (1.6-2.5) 05/28/19 04:00 Microbiology 05/24/19 01:32 Blood Blood Culture - Final Staphylococcus aureus 05/27/19 03:50 Blood Blood Culture - Final Staphylococcus aureus 05/27/19 04:00 Blood Blood Culture - Preliminary 05/29/19 04:10 Blood Blood Culture - Preliminary 05/29/19 04:20 Blood Blood Culture - Preliminary 05/25/19 12:05 Blood Blood Culture - Final Staphylococcus aureus 05/24/19 01:46 Blood Blood Culture - Final Staphylococcus aureus 05/25/19 12:50 Blood Blood Culture - Final Staphylococcus aureus 05/24/19 10:46 Nasopharynx Respiratory Virus Panel (PCR) - Final 05/24/19 10:46 Nasopharynx Respiratory Panel (PCR) - Final 05/24/19 01:50 Nose - Both Right and Left MRSA (PCR) - Final Medications Active Medications: Acetaminophen (Tylenol) 650 mg PO Q4-6HP PRN; Protocol PRN Reason: Per Pain Protocol/Fever > 101 Acyclovir (Zovirax) 400 mg PO QDAY [facility]; Protocol Last Admin: 05/30/19 08:31 Dose: 400 mg Documented by: [id number] Albuterol Sulfate (Ventolin) 1 puff INH Q4HP PRN PRN Reason: Shortness Of Breath Amlodipine Besylate (Norvasc) 10 mg PO DAILY [facility] Last Admin: 05/30/19 08:33 Dose: 10 mg Documented by: [id number] Artificial Tears (Refresh Celluvisc) 1 each OU QIDP PRN PRN Reason: DRY EYES Atorvastatin Calcium (Lipitor) 40 mg PO QDAY [facility] Last Admin: 05/30/19 08:31 Dose: 40 mg Documented by: [id number] Bisacodyl (Dulcolax) 10 mg [place] Q2-3DAYS PRN PRN Reason: Constipation Cefazolin Sodium (Ancef) 2 gm IV Q8H [facility] Last Admin: 05/30/19 14:36 Dose: 2 gm Documented by: Admin: 05/30/19 05:00 Dose: 2 gm Documented by: Admin: 05/29/19 21:49 Dose: 2 gm Documented by: Admin: 05/29/19 14:04 Dose: 2 gm Documented by: WILLARD Citalopram Hydrobromide (Celexa) 40 mg PO QDAY [facility] Last Admin: 05/30/19 08:30 Dose: 40 mg Documented by: VIOLET Docusate Sodium (Colace) 100 mg PO BID [facility] Last Admin: 05/30/19 08:32 Dose: 100 mg Documented by: Admin: 05/29/19 21:48 Dose: 100 mg Documented by: JM Enalaprilat (Vasotec) 0 mg IV Q2HP PRN PRN Reason: Hypertension Enoxaparin Sodium (Lovenox) 40 mg SQ DAILY [facility] Last Admin: 05/30/19 08:32 Dose: 40 mg Documented by: VIOLET Heparin Sodium (Porcine) (Heparin Flush) 2 ml IV Q12 [facility] Last Admin: 05/30/19 08:32 Dose: 2 ml Documented by: Admin: 05/29/19 21:48 Dose: 2 ml Documented by: JM Labetalol HCl (Trandate) 0 mg IV Q2HP PRN PRN Reason: Hypertension Lactobacillus Rhamnosus (Culturelle) 1 cap PO BID [facility] Last Admin: 05/30/19 08:31 Dose: 1 cap Documented by: Admin: 05/29/19 21:48 Dose: 1 cap Documented by: JM Levothyroxine Sodium (Synthroid) 100 mcg PO ACB [facility] Last Admin: 05/30/19 08:31 Dose: 100 mcg Documented by: VIOLET Lisinopril (Zestril) 10 mg PO DAILY [facility] Last Admin: 05/30/19 08:30 Dose: 10 mg Documented by: VIOLET Magnesium Hydroxide (Milk Of Magnesia) 30 ml PO DAILYP PRN PRN Reason: Constipation Ondansetron HCl (Zofran) 4 mg IV Q6HP PRN PRN Reason: Nausea And Vomiting Pantoprazole Sodium (Protonix) 40 mg PO BID [facility] Last Admin: 05/30/19 08:30 Dose: 40 mg Documented by: Admin: 05/29/19 21:47 Dose: 40 mg Documented by: JM Polyethylene Glycol (Miralax) 17 gm PO DAILYP PRN PRN Reason: Constipation Prednisolone Acetate (Pred Forte Ophth Drops) 1 gtt OD Q48H [facility] Last Admin: 05/30/19 14:39 Dose: 1 gtt Documented by: VIOLET Senna (Senokot) 2 tab PO HS [facility] Last Admin: 05/29/19 21:48 Dose: 2 tab Documented by: JM Sodium Chloride (Saline Flush) 10 ml IV Q8 [facility] Last Admin: 05/30/19 14:36 Dose: 10 ml Documented by: Admin: 05/30/19 05:07 Dose: 10 ml Documented by: Admin: 05/29/19 22:09 Dose: Not Given Documented by: JM Non-Admin Reason: Duplicate Admin: 05/29/19 14:04 Dose: 10 ml Documented by: WILLARD Sodium Chloride (Saline Flush) 10 ml IV Q12 [facility] Last Admin: 05/30/19 08:33 Dose: 10 ml Documented by: Admin: 05/29/19 22:08 Dose: Not Given Documented by: JM Non-Admin Reason: Duplicate Sodium Chloride (Saline Flush) 10 ml IV UD PRN PRN Reason: FLUSH Sodium Chloride (Saline Flush) 10 ml IV Q12 [facility] Last Admin: 05/30/19 09:18 Dose: 10 ml Documented by: Admin: 05/29/19 22:08 Dose: Not Given Documented by: JM Non-Admin Reason: Duplicate Vitamin D (Vitamin D3) 4,000 unit PO QDAY [facility] Last Admin: 05/30/19 08:30 Dose: 4,000 unit Documented by: VIOLET Assessment and Plan - Narrative A/P Narrative: A: 1. MSSA bacteremia: - Blood Cx +ve on 05/24 (2/2 sets), 05/25 (2/2 sets) and 05/27 - likely source being MSSA translocation post-right hip steroid injection few weeks ago. Pt does have hardware in her knees, shoulders which could be potential seeding areas due to MSSA bacteremia. The 2.1 cm low-attenuation focus in the distal right iliopsoas tendon [new from a CT less than two weeks ago] is concerning and could signify iliopsoas focus of infection. - On IV Vanc for 1st 2 days of hospital stay, now on IV Cefazolin - TTE neg for IE 2. Mid-back pain: point tenderness on physical exam today - r/o any spine (epidural space, vertebral infection) infection Recommendations: - Continue IV Cefazolin 2 gm q8 hrs - repeat blood Cx 2 sets every other day until negative - will plan for LUÍS as OP - await MRI imaging of [id number] spine and pelvis to r/o any focus of infection, report pending. If any focus of infection such as abscess, it should be drained with operative Cx sent for GS and C/S. will follow Alexis Louis MD Infectious diseases
[2019-05-30] MEDS: SENNOSIDES 1 TABLET PO SCH (21:45)
[2019-05-31] MEDS: 0.9 % SODIUM CHLORIDE 10 ML SYRINGE IV SCH ×7 (05:03→21:58)
[2019-05-31] MEDS: ceFAZolin 1 GM VIAL IV SCH ×2 (05:03→18:33)
[2019-05-31 06:46] LABS: Basophils # (Auto) 0.1 K/mcL (0.0-0.3); Basophils % (Auto) 0.5 % (0.0-2.0); Eosinophils # (Auto) 0.2 K/mcL (0.0-0.7); Eosinophils % (Auto) 1.2 % (0.0-7.0); Granulocytes % (Auto) 82.4 % (38.0-78.0); Hematocrit 31.2 % (36.0-48.0); Hemoglobin 9.9 g/dL (12.0-15.0); Lymphocytes # (Auto) 1.5 K/mcL (1.5-4.8); Lymphocytes % (Auto) 9.8 % (15.5-49.0); Mean Cell Volume 85.7 fL (80.0-100.0); Mean Corpuscular HGB Conc 31.7 g/dL (31.0-36.0); Monocytes # (Auto) 0.9 K/mcL (0.1-0.9); Monocytes % (Auto) 6.1 % (1.0-12.0); Platelet Count 769 K/mcL (140-440); RBC 3.64 M/mcL (4.00-5.20); Red Cell Distribution Width 14.9 % (11.5-14.5); WBC 15.5 K/mcL (4.5-11.0)
[2019-05-31 07:12] LABS: Blood Urea Nitrogen 11 mg/dl (8-23); Calcium 9.3 mg/dl (8.6-10.4); Carbon Dioxide 25 mmol/L (22-30); Glomerular Filtration Rate 101; Glucose 80 mg/dL (70-105)
--- NOTE | 2019-05-31 07:13 | Internal Med Progress Note ---
Medical - PN: Subj Patient information: Note initiated : 05/31/19 at 7:11 am Service Date, if different from initiated Date: [] Patient: Danita Casanova a 74 y/o F admitted on 05/24/19 for Altered loc, distended abdomen, low sats. Chief Complaint: [] Interval history: Ms. Casanova is a 74 year old F with a history of high blood pressure and CHF who was brought to the ER from her [facility] due to mental status change. Patient is poor historian and almost all history is obtained from medical chart and the ER physician. Patient was found to to have confusion, low energy and sleepy. Patient was recently treated for UTI. Possibly she completed a course of antibiotics. In the ER, CT of the head negative for acute change. CT chest abdomen and pelvis was performed without sources of infection. Urinalysis negative. White blood cells 20.3 but lactic acid 0.9, BNP 655. I was told that patient had a positive influenza B screen. MRSA screening negative. 05/25 Today mental status significantly improved. She does not have any complaints and feels fine. Denies fever, chills, nausea, vomiting, or dysuria. Blood culture positive for gram-positive cocci in clusters 05/26 Slept well. Denies any pains or complaints this morning. Answers some simple yes/no questions and follows commands. 05/27 No overnight events. No new complaints. CT pelvis done yesterday showed possible focus of infection or inflammation distal right iliopsoas tendon, but called radiologist who reviewed imaging and felt it was incidental and not likely infection. We will continue to monitor and repeat imaging later only if feel necessary. 05/28 Patient was lethargic last night per nursing. Fentanyl patch removed. Patient is more alert this morning. No new complaints. 05/29 No overnight events. One bottle of blood cultures on positive. Will DC midline and repeat blood cultures. Patient has no new complaints. Discussed case with infectious disease. Will obtain MRI of the pelvis. 05/30 Patient quiet this morning, slow to answer questions. But denies any complaints. 05/31 More alert this morning. Patient is felt she slept well. No new complaints other than occasional headache. No overnight events. Review of Systems: denies headache/fever/chills/nausea/vomiting/chest or abdominal pain/cough/ dyspnea/diarrhea. Otherwise see above. - Constitutional Vitals: Vital Signs Temp Pulse Resp BP Pulse Ox 97.8 F 74 14 107/58 93 05/31/19 03:30 05/31/19 03:30 05/31/19 03:30 05/31/19 03:30 05/31/19 03:30 Period Temp Pulse Resp BP Sys/[place] Pulse Ox Last 24 Hr 97.7 F-98.9 F 70-98 14-20 107-133/58-72 92-94 Intake and Output 05/30/19 05/31/19 05/31/19 21:59 05:59 13:59 Intake Total 400 Output Total 1 3 Balance 399 -3 Weight 78.018 kg Intake & Output: Intake & Output 05/30/19 05/31/19 05/31/19 21:59 05:59 13:59 Intake Total 400 Output Total 1 3 Balance 399 -3 Weight 78.018 kg Intake: Oral 200 GI Tube Flush 200 Output: # of times incontinent of urine 1 3 Other: Meal Lunch Percent of Meal Consumed 75% Stool Size Moderate Small Stool Color Brown Brown Yellow Stool Consistency Soft # of times incontinent of 1 Bowels Exam: General: Awake, No acute Distress Eyes/N/T: EOMI, Head/Neck: neck supple, CV: Regular with occasional ectopic beats, 2/6 SM Pulm: Clear b/l, no wheezing/rhonchi/rales Abd: soft, nontender, +BS x4 Ext: no clubbing/cyanosis, trace-1+ b/l LE edema Neuro: alert, no focal deficits, moves all extremities, Skin: warm/dry Medical - PN: Obj Da - Labs CBC & Chem 7: 05/31/19 04:00 05/31/19 04:00 Labs: Abnormal Lab Results 05/31/19 05/30/19 05/30/19 04:00 07:32 07:32 WBC 15.5 H RBC 3.64 L Hgb 9.9 L Hct 31.2 L RDW 14.9 H Plt Count 769 H MPV 7.0 L Gran % 82.4 H Lymph % (Auto) 9.8 L Gran # 12.8 H [place] # (Auto) Lymphocytes % ESR 105 H Sodium Chloride Creatinine C-Reactive Protein 3.2 H 05/30/19 05/30/19 05/29/19 04:50 04:50 04:10 WBC 17.0 H RBC 3.56 L Hgb 9.7 L Hct 30.5 L RDW 14.9 H Plt Count 754 H MPV 7.0 L Gran % 82.3 H Lymph % (Auto) 9.8 L Gran # 14.0 H [place] # (Auto) 1.1 H Lymphocytes % ESR Sodium 131 L Chloride 93 L Creatinine 0.4 L 0.4 L C-Reactive Protein 05/29/19 05/28/19 04:10 04:00 WBC 15.9 H RBC 3.59 L Hgb 9.8 L Hct 31.3 L RDW 15.0 H Plt Count 694 H MPV 7.0 L Gran % 81.8 H Lymph % (Auto) 10.3 L Gran # 13.0 H [place] # (Auto) 1.1 H Lymphocytes % 14 L ESR Sodium Chloride Creatinine C-Reactive Protein Meds: Medications Acetaminophen (Tylenol) 650 mg PO Q4-6HP PRN; Protocol PRN Reason: Per Pain Protocol/Fever > 101 Acyclovir (Zovirax) 400 mg PO QDAY [facility]; Protocol Last Admin: 05/30/19 08:31 Dose: 400 mg Documented by: Albuterol Sulfate (Ventolin) 1 puff INH Q4HP PRN PRN Reason: Shortness Of Breath Amlodipine Besylate (Norvasc) 10 mg PO DAILY [facility] Last Admin: 05/30/19 08:33 Dose: 10 mg Documented by: Artificial Tears (Refresh Celluvisc) 1 each OU QIDP PRN PRN Reason: DRY EYES Atorvastatin Calcium (Lipitor) 40 mg PO QDAY [facility] Last Admin: 05/30/19 08:31 Dose: 40 mg Documented by: Bisacodyl (Dulcolax) 10 mg SC Q2-3DAYS PRN PRN Reason: Constipation Cefazolin Sodium (Ancef) 2 gm IV Q8H [facility] Last Admin: 05/31/19 05:03 Dose: 2 gm Documented by: Citalopram Hydrobromide (Celexa) 40 mg PO QDAY [facility] Last Admin: 05/30/19 08:30 Dose: 40 mg Documented by: Docusate Sodium (Colace) 100 mg PO BID [facility] Last Admin: 05/30/19 21:44 Dose: Not Given Documented by: Enalaprilat (Vasotec) 0 mg IV Q2HP PRN PRN Reason: Hypertension Enoxaparin Sodium (Lovenox) 40 mg SQ DAILY [facility] Last Admin: 05/30/19 08:32 Dose: 40 mg Documented by: Heparin Sodium (Porcine) (Heparin Flush) 2 ml IV Q12 [facility] Last Admin: 05/30/19 21:48 Dose: 2 ml Documented by: Labetalol HCl (Trandate) 0 mg IV Q2HP PRN PRN Reason: Hypertension Lactobacillus Rhamnosus (Culturelle) 1 cap PO BID [facility] Last Admin: 05/30/19 21:44 Dose: Not Given Documented by: Levothyroxine Sodium (Synthroid) 100 mcg PO ACB [facility] Last Admin: 05/30/19 08:31 Dose: 100 mcg Documented by: Lisinopril (Zestril) 10 mg PO DAILY [facility] Last Admin: 05/30/19 08:30 Dose: 10 mg Documented by: Magnesium Hydroxide (Milk Of Magnesia) 30 ml PO DAILYP PRN PRN Reason: Constipation Ondansetron HCl (Zofran) 4 mg IV Q6HP PRN PRN Reason: Nausea And Vomiting Pantoprazole Sodium (Protonix) 40 mg PO BID [facility] Last Admin: 05/30/19 21:44 Dose: Not Given Documented by: Polyethylene Glycol (Miralax) 17 gm PO DAILYP PRN PRN Reason: Constipation Prednisolone Acetate (Pred Forte Ophth Drops) 1 gtt OD Q48H [facility] Last Admin: 05/30/19 14:39 Dose: 1 gtt Documented by: Senna (Senokot) 2 tab PO HS [facility] Last Admin: 05/30/19 21:45 Dose: Not Given Documented by: Sodium Chloride (Saline Flush) 10 ml IV Q8 [facility] Last Admin: 05/31/19 05:03 Dose: 10 ml Documented by: Sodium Chloride (Saline Flush) 10 ml IV Q12 [facility] Last Admin: 05/30/19 21:49 Dose: 10 ml Documented by: Sodium Chloride (Saline Flush) 10 ml IV UD PRN PRN Reason: FLUSH Sodium Chloride (Saline Flush) 10 ml IV Q12 [facility] Last Admin: 05/30/19 21:44 Dose: Not Given Documented by: Vitamin D (Vitamin D3) 4,000 unit PO QDAY [facility] Last Admin: 05/30/19 08:30 Dose: 4,000 unit Documented by: Medical - PN: A/P - Time Spent With Patient Total time spent is greater than 50% in coordination of care (as documented) at patient's floor/unit and/or counseling patient: - Narrative A/P Narrative: Assessment: *Sepsis: improved -afebrile, PCT 0.18<0.92 *Encephalopathy including lethargy/weakness: 2/2 above, -Improved *Bacteremia(MSSA): -echo no mention of vegetations, good EF, no diastolic dysfxn -CT pelvis (to look for abscess as she had recent hip injection) showed no abscess but small focus distal right iliopsoas tendon as possible infection/inflammation: discussed with radiology who reviewed imaging and felt it was more likely an incidental finding and not likely infection. -05/27 06/08 bottles (+) *Persistent leukocytosis: no bandemia, afebrile -still fluctuating *Oropharyngeal Dysphagia, mild: *Advanced Dementia: *hypokalemia: resolved *HTN/HLD: norvasc/lisinopril, statin *RA: follows with Dr. Hoffmann, on mycophenalate *chr pain: on Fentanyl Patch *Depression: on citalopram *Hypothyroid: tsh wnl *GERD: *f/u PCR test negative for Influenza B, screen in ED was positive Plan: -Ancef, serial BC's -ID following -midline switched out -MRI pelvis/spine pending -cont home norvasc/acei -holding fentanyl patch for sedation -d/c'd cellcept given infection, possibly contributing to leukocytosis as well -pt/ot/st -dysphagia diet per ST -[facility] as outpt -ppx: Lovenox/home ppi DNR
[2019-05-31 07:16] LABS: Chloride 94 mmol/L (96-108)
--- NOTE | 2019-05-31 08:00 | Magnetic Resonance Report ---
History: Infection of unknown etiology, Decreased level of consciousness TECHNIQUE: Multiplanar imaging was performed using multiple pulse sequences. 5 mL MultiHance contrast was injected intravenously and postcontrast T1-weighted views were obtained. Patient was unable to follow instructions and remain motionless during the exam. As result there is motion artifact in many of the pulse sequences. FINDINGS: The vertebral bodies and intervertebral discs are normal in height and alignment. There is no evidence of discitis or osteomyelitis. No paraspinal hematoma or abscess are present. There is also no epidural abscess. Mild osteoarthritis is present with formation of small anterior spurs throughout the thoracic spine. In the lower cervical spine there is moderate disc space narrowing with larger spurs. Central canal is normal in caliber. The spinal cord is normal in size signal and contour. No enhancing lesion is present. IMPRESSION: Normal thoracic spine except for normal age-related degenerative changes Interpreted and Authenticated by: Jacob Mckenzie 05/31/19
--- NOTE | 2019-05-31 08:29 | Magnetic Resonance Report ---
History: Fever of unknown origin, follow-up lesion in the right iliopsoas tendon TECHNIQUE: Multiplanar imaging was performed using multiple pulse sequences. MultiHance contrast was injected intravenously. Postcontrast axial and coronal T1-weighted views were obtained. The patient was unable to follow instructions and there is motion artifact in many of the pulse sequences. FINDINGS: There is a well-defined linear band of fluid within the iliopsoas tendon in the right groin. This is unchanged from the recent pelvic CT done on 05/26/19. There is no associated inflammation or enhancement in or around the tendon. This is most likely due to an old intrasubstance tear. Patient does have moderate osteoarthritis in the right hip with joint space narrowing and spur formation. There is no evidence of a septic joint. Patient has mild to moderate fecal impaction in the rectum and distal sigmoid colon. There is thickening and infiltration of the presacral fat at the level of the rectum which enhances with contrast. There is a fat plane the rectum from the thickened presacral tissues. The wall of the rectum does not appear to be abnormally thickened. The sacrum appears normal without evidence of inflammation or fracture. No abscess or ascites are present. Patient has a 1.5 cm fibroid in the posterior uterine fundus. The remainder of the uterus and ovaries appear normal. The ovaries are atrophic. The urinary bladder is decompressed. There is some air within the lumen of the bladder. Has the patient recently been catheterized? The wall of the bladder does not appear to be abnormally thickened. IMPRESSION: Thickening and enhancement of the presacral soft tissues. Much of this may be normal presacral venous plexus. However, the thickening and enhancement is greater than I normally see, suggesting inflammation. No abscess or evidence of osteomyelitis Old intrasubstance tear in the distal right iliopsoas tendon Moderate osteoarthritis in the right hip Interpreted and Authenticated by: Jacob Mckenzie 05/31/19
--- NOTE | 2019-05-31 08:46 | Magnetic Resonance Report ---
History: Fever of unknown origin, back pain TECHNIQUE: Multiplanar imaging was performed using multiple pulse sequences. 5 mL of MultiHance contrast was injected intravenously and postcontrast T1-weighted views were obtained. The patient was unable to follow instructions and there is motion artifact in most of the pulse sequences. FINDINGS: Along the right side of the spinous process of L5, adjacent to the extensor muscles there is a 1.2 x 1.3 x 1.5 cm fluid collection. There is enhancement along the periphery. There is no erosion of the adjacent bone. The fluid collection is separate from the facet joint. Severe osteoarthritis is present in both facets at L5-S1 resulting in mild grade 1 spondylolisthesis and severe stenosis of both neural foramina. Disc is mildly narrowed and there is a small broad-based posterior bulge. This is causing mild spinal canal stenosis. There is a great deal of edema/inflammation in and around the right facet joint. The joint space is mildly widened with fluid in the joint. There is alteration of signal in the bone marrow in the facets as well as the right-sided pedicle of L5. There is significant edema and inflammation of the surrounding soft tissues which enhance with contrast. There is also significant edema and inflammation in the extensor muscles from L4-5 down to S1-2. Within the right side of the spinal canal, adjacent to the facet joint. Measures approximate 6 mm thickness and 1.6 cm in AP dimension. There is enhancement surrounding this. This may be a small epidural abscess. No prevertebral soft tissue swelling is present. L4-5 disc is normal. There is mild to moderate arthritis in both facets resulting in moderate stenosis of both neural foramina. L3-4 disc is moderately narrowed and degenerated and there is mild arthritis in the facets. Mild disc space narrowing and subtle posterior bulges are present at L1-2 and L2-3. The spinal cord is normal in the conus is at L1. IMPRESSION: Small abscesses at the L5-S1 level. One is an epidural abscess on the right side, adjacent to the right side facet at L5-S1. The other is located in the posterior paraspinal space along the right side of the spinous process of L5 Inflammation and possible osteomyelitis in around the right facet joint at L5-S1 Interpreted and Authenticated by: Jacob Mckenzie 05/31/19
[2019-05-31] MEDS: ENOXAPARIN 40 MG/0.4 ML SYRINGE SQ SCH (08:49)
[2019-05-31] MEDS: LISINOPRIL 10 MG TABLET PO SCH (08:50)
[2019-05-31] MEDS: amLODIPine 10 MG TABLET PO SCH (08:50)
[2019-05-31] MEDS: VITAMIN D3 1,000 UNIT TABLET PO SCH (08:50)
[2019-05-31] MEDS: ATORVASTATIN 40 MG TABLET PO SCH (08:51)
[2019-05-31] MEDS: LEVOTHYROXINE 100 MCG TABLET PO SCH (08:51)
[2019-05-31] MEDS: LACTOBACILLUS 1 CAPSULE PO SCH ×2 (08:51→21:35)
[2019-05-31] MEDS: CITALOPRAM 20 MG TABLET PO SCH (08:52)
[2019-05-31] MEDS: ACYCLOVIR 400 MG TABLET PO SCH (08:52)
[2019-05-31] MEDS: PANTOPRAZOLE 40 MG TABLET PO SCH ×2 (08:52→21:35)
[2019-05-31] MEDS: DOCUSATE SODIUM 100 MG CAPSULE PO SCH ×2 (08:53→21:35)
--- NOTE | 2019-05-31 12:20 | Discharge Summary ---
Medical - DS: Prov Patient information: Note initiated : 05/31/19 at 12:17 pm Service Date, if different from initiated Date: [] Patient: Danita Casanova 74 y/o F admitted on 05/24/19 for Altered loc, distended abdomen, low sats. Chief Complaint: [] Date of admission: 05/24/19 01:00 Discharge date: 06/01/19 Primary care physician: Migdalia Bourgeois Consults: 05/23/19 17:30 Consult to Physician [CONS] Routine Comment: Consulting Provider: Mike Wright Reason For Exam: Physician to Consult 05/25/19 15:42 Consult to Physician [CONS] Routine Comment: [facility] bactermia Consulting Provider: Alexis Louis Reason For Exam: Physician to Consult Medical - DS: Meds - Discharge Medications Prescriptions: ceFAZolin [Ancef] 2 gm IV Q8H #1 vial Prescription Printed Hydrocodone/APAP 7.5/325Mg [[place] 7.5-325Mg] 1 tab PO Q6HP PRN #20 tab PRN Reason: Pain Prescription Printed Active and Home Medications: Home Medications acetaminophen 500 mg tablet 1,000 mg PO Q4-6HP PRN tab 07/08/16 [History Confirmed 05/24/19 Last Taken Unknown] albuterol sulfate 2 mg tablet 4 mg PO Q6HP PRN tab 07/08/16 [History Confirmed 05/24/19 Last Taken Unknown] amlodipine 10 mg tablet 10 mg PO DAILY 07/08/16 [History Confirmed 05/24/19 Last Taken Unknown] atorvastatin 40 mg tablet 40 mg PO QHS 07/08/16 [History Confirmed 05/24/19 Last Taken Unknown] hydrocodone 7.5 mg-acetaminophen 325 mg tablet 1 tab PO Q6HP PRN tab 07/08/16 [History Confirmed 05/24/19 Last Taken Unknown] pantoprazole 40 mg tablet,delayed release 40 mg PO BID tab 07/08/16 [History Confirmed 05/24/19 Last Taken Unknown] levothyroxine 100 mcg capsule 100 mcg PO QDAY 07/18/16 [History Confirmed 05/24/19 Last Taken Unknown] acyclovir 400 mg tablet 400 mg PO BID tab 05/22/17 [History Confirmed 05/24/19 Last Taken Unknown] mycophenolate mofetil 500 mg tablet See Rx Instructions .ROUTE .COMPLEX #180 tablet 01/22/19 [Rx Confirmed 05/24/19 Last Taken Unknown] potassium chloride 10 mEq tablet,extended release(part/cryst) 10 meq PO QDAY 05/21/19 [History Confirmed 05/24/19 Last Taken Unknown] prednisolone acetate (PF) 1 % eye drops,suspension 1 drp OPHTHALMIC Q48 05/21/19 [History Confirmed 05/26/19 Last Taken Unknown] Lisinopril [Zestril] 10 mg PO DAILY 05/23/19 [History Confirmed 05/24/19 Last Taken Unknown] Cholecalciferol (Vitamin D3) [D3 Dots] 1,000 unit PO DAILY 05/24/19 [History Confirmed 05/24/19 Last Taken Unknown] Citalopram [Celexa] 40 mg PO DAILY 05/24/19 [History Confirmed 05/24/19 Last Taken Unknown] Doxycycline Hyclate [Vibramycin] 100 mg PO BID 05/24/19 [History Confirmed 05/24/19 Last Taken Unknown] Phenyleph/Mineral Oil/Petrolat [Preparation H Ointment] 28 gm RC DAILY PRN 05/24/19 [History Confirmed 05/24/19 Last Taken Unknown] fentaNYL [Fentanyl] 12 mcg TOPICAL Q72H PRN 05/24/19 [History Confirmed 05/24/19 Last Taken 05/21/19 09:00] Home Medications acetaminophen 500 mg tablet 1,000 mg PO Q4-6HP PRN tab 07/08/16 [History Confirmed 05/24/19 Last Taken Unknown] albuterol sulfate 2 mg tablet 4 mg PO Q6HP PRN tab 07/08/16 [History Confirmed 05/24/19 Last Taken Unknown] amlodipine 10 mg tablet 10 mg PO DAILY 07/08/16 [History Confirmed 05/24/19 Last Taken Unknown] atorvastatin 40 mg tablet 40 mg PO QHS 07/08/16 [History Confirmed 05/24/19 Last Taken Unknown] hydrocodone 7.5 mg-acetaminophen 325 mg tablet 1 tab PO Q6HP PRN tab 07/08/16 [History Confirmed 05/24/19 Last Taken Unknown] pantoprazole 40 mg tablet,delayed release 40 mg PO BID tab 07/08/16 [History Confirmed 05/24/19 Last Taken Unknown] levothyroxine 100 mcg capsule 100 mcg PO QDAY 07/18/16 [History Confirmed 05/24/19 Last Taken Unknown] acyclovir 400 mg tablet 400 mg PO BID tab 05/22/17 [History Confirmed 05/24/19 Last Taken Unknown] potassium chloride 10 mEq tablet,extended release(part/cryst) 10 meq PO QDAY 05/21/19 [History Confirmed 05/24/19 Last Taken Unknown] prednisolone acetate (PF) 1 % eye drops,suspension 1 drp OPHTHALMIC Q48 05/21/19 [History Confirmed 05/26/19 Last Taken Unknown] Lisinopril [Zestril] 10 mg PO DAILY 05/23/19 [History Confirmed 05/24/19 Last Taken Unknown] Cholecalciferol (Vitamin D3) [D3 Dots] 1,000 unit PO DAILY 05/24/19 [History Confirmed 05/24/19 Last Taken Unknown] Citalopram [Celexa] 40 mg PO DAILY 05/24/19 [History Confirmed 05/24/19 Last Taken Unknown] Phenyleph/Mineral Oil/Petrolat [Preparation H Ointment] 28 gm RC DAILY PRN 05/24/19 [History Confirmed 05/24/19 Last Taken Unknown] ceFAZolin [Ancef] 2 gm IV Q8H #1 vial 05/31/19 [Rx Last Taken Unknown] Medical - DS: Hosp Hospital Course: Assessment: *Sepsis: improved -afebrile, PCT 0.18<0.92 *Encephalopathy including lethargy/weakness: 2/2 above, -Improved *Bacteremia(MSSA): -echo no mention of vegetations, good EF, no diastolic dysfxn -CT pelvis (to look for abscess as she had recent hip injection) showed no abscess but small focus distal right iliopsoas tendon as possible i nfection/inflammation: discussed with radiology who reviewed imaging and felt it was more likely an incidental finding and not likely infection. -05/27 1/ bottles (+) *Small spinal abscesses:MRI imaging revealed small spinal abscess along L5-S1. Pedro case with neurosurgeon who felt they were small enough that he could continue as conservative treatment with antibiotics and repeat imaging in sev eral days to make sure they are not enlarging. *Oropharyngeal Dysphagia, mild: *Advanced Dementia: *hypokalemia: resolved *HTN/HLD: norvasc/lisinopril, statin *RA: follows with Dr. Shun, on mycophenalate on hold for above infection *chr pain: on Fentanyl Patch *Depression: on citalopram *Hypothyroid: tsh wnl *GERD: Ms. Casanova is a 74 year old F with a history of high blood pressure and CHF who was brought to the ER from her long term due to mental status change. Patient is poor historian and almost all history is obtained from medical chart and the ER physician. Patient was found to to have confusion, low energy and sleepy. Patient was recently treated for UTI. Possibly she completed a course of antibiotics. In the ER, CT of the head negative for acute change. CT chest abdomen and pelvis was performed without sources of infection. Urinalysis negative. White blood cells 20.3 but lactic acid 0.9, BNP 655. I was told that patient had a positive influenza B screen. MRSA screening negative. 05/25 Today mental status significantly improved. She does not have any complaints and feels fine. Denies fever, chills, nausea, vomiting, or dysuria. Blood culture positive for gram-positive cocci in clusters 05/26 Slept well. Denies any pains or complaints this morning. Answers some simple yes/no questions and follows commands. 05/27 No overnight events. No new complaints. CT pelvis done yesterday showed possible focus of infection or inflammation distal right iliopsoas tendon, but called radiologist who reviewed imaging and felt it was incidental and not likely infection. We will continue to monitor and repeat imaging later only if feel necessary. 05/28 Patient was lethargic last night per nursing. Fentanyl patch removed. Patient is more alert this morning. No new complaints. 05/29 No overnight events. One bottle of blood cultures on positive. Will DC midline and repeat blood cultures. Patient has no new complaints. Discussed case with infectious disease. Will obtain MRI of the pelvis. 05/30 Patient quiet this morning, slow to answer questions. But denies any complaints. 05/31 More alert this morning. Patient is felt she slept well. No new complaints other than occasional headache. No overnight events. MRI imaging revealed small spinal abscess along L5-S1. Pedro case with neurosurgeon who felt they were small enough that he could continue as conservative treatment with antibiotics and repeat imaging in several days to make sure they are not enlarging. place PICC, plan for d/c 06/01 No overnight events. Worked with physical therapy this morning, need to continue to acute PT. weekly cbc/cmp/ESR/CRP while on IV abx f/u with Dr. Louis for repeat MRI Patient is high risk for readmission given age and significant comorbidities. Discharge diagnosis: Abscess staph aureus bacteremia spinal abscess dementia dysphasia hypertens Secondary discharge diagnosis: Rheumatoid arthritis depression hypothyroidism GERD - Time Spent with Patient Total time spent providing and/or coordinating discharge services: Greater than 30 minutes Medical - DS: Exam - Constitutional Vitals: Vital Signs Temp Pulse Resp BP Pulse Ox 05/31/19 08:00 98.0 F 73 18 129/74 96 05/31/19 03:30 97.8 F 74 14 107/58 93 05/30/19 22:40 97.7 F 70 18 92 05/30/19 18:53 98.4 F 80 18 109/62 94 05/30/19 16:00 98.7 F 74 20 130/65 94 Intake and Output 05/30/19 05/31/19 05/31/19 21:59 05:59 13:59 Intake Total 400 Output Total 1 3 Balance 399 -3 Intake: Oral 200 GI Tube Flush 200 Output: # of times incontinent of urine 1 3 Other: Meal Lunch Percent of Meal Consumed 75% Stool Size Moderate Small Stool Color Brown Brown Yellow Stool Consistency Soft # of times incontinent of 1 Bowels Weight 78.018 kg Medical - DS: Data Labs on day of discharge: Labs from last 24 hours 05/31/19 05/31/19 05/31/19 04:00 04:00 04:00 WBC 15.5 H RBC 3.64 L Hgb 9.9 L Hct 31.2 L MCV 85.7 MCH 27.2 MCHC 31.7 RDW 14.9 H Plt Count 769 H MPV 7.0 L Gran % 82.4 H Lymph % (Auto) 9.8 L [place] % (Auto) 6.1 Eos % (Auto) 1.2 Baso % (Auto) 0.5 Gran # 12.8 H Lymph # (Auto) 1.5 [place] # (Auto) 0.9 Eos # (Auto) 0.2 Baso # (Auto) 0.1 Sodium 131 L Potassium 4.5 Chloride 94 L Carbon Dioxide 25 Anion Gap 12.0 BUN 11 Creatinine 0.4 L GFR Calculation 101 Glucose 80 Calcium 9.3 C-Reactive Protein 3.4 H Preliminary micro results at discharge 05/27/19 04:00 Blood Culture - Preliminary Blood 05/29/19 04:10 Blood Culture - Preliminary Blood 05/29/19 04:20 Blood Culture - Preliminary Blood Medical - DS: A/P - Patient/Caregiver Discharge Instructions Activity: increase activity as tolerated Diet: Dysphagia Level 5 Minced & Moist Foods Additional Instructions: Follow-up Dr. Heriberto Flynn regarding repeat MRI of the lumbar spine. Schedule LU[facility]S at [facility] outpatient heart and vascular ([phone]). Prescriptions: ceFAZolin [Ancef] 2 gm IV Q8H #1 vial Prescription Printed Hydrocodone/APAP 7.5/325Mg [[place] 7.5-325Mg] 1 tab PO Q6HP PRN #20 tab PRN Reason: Pain Prescription Printed Other Amb Orders: OT Discharge Order Location: None Selected Physical Therapy at Discharge - General Location: None Selected ST Discharge Order Location: None Selected Transesophageal Echocardiogram Time Frame: 06/07/19, Location: None Selected - Follow up Plan Follow up with: Alexis Louis MD [Physician] - 06/11/19 8:15 am Migdalia Bourgeois MD [Primary Care Provider] - Arie Hoffmann MD [Physician] - (off mycophenalate given current infection) Disposition: Xfer SNF Prognosis: Undetermined Rehab Potential: Fair I certify that the patient requires SNF services: Yes Overall status at discharge: patient is not back to baseline
--- NOTE | 2019-05-31 13:01 | Infectious Disease Prog Note ---
Subjective Patient information: Note initiated : 05/31/19 at 12:54 pm Service Date, if different from initiated Date: [] Patient: Danita Casanova 74 y/o F admitted on 05/24/19 for Altered loc, distended abdomen, low sats. Chief Complaint: [] Interval history: Pt doing fine. Endorses pain in right hip, lower back. Denied any fever, chills, n/v/diarrhea. Discussed with her MRI results, plans for at least 6 -8 weeks of IV antibiotics, PICC line placement and ID clinic f/u in 2 weeks. Pt voiced understanding. Objective Objective Narrative: ao x 2 chest cta s1 s2 normal bs ++ nttd power 2/5 in both lower limbs pain on movement around the right hip joint (flexion, extension, external and internal rotation) Rt arm midline - Vital Signs Vital signs: Vital Signs Temp Pulse Resp BP Pulse Ox 05/31/19 12:00 36.3 C 75 18 115/57 97 05/31/19 08:00 36.7 C 73 18 129/74 96 05/31/19 03:30 36.6 C 74 14 107/58 93 05/30/19 22:40 36.5 C 70 18 92 05/30/19 18:53 36.9 C 80 18 109/62 94 05/30/19 16:00 37.1 C 74 20 130/65 94 Intake and Output 05/30/19 05/31/19 05/31/19 21:59 05:59 13:59 Intake Total 400 Output Total 1 3 Balance 399 -3 Intake: Oral 200 GI Tube Flush 200 Output: # of times incontinent of urine 1 3 Other: Meal Lunch Percent of Meal Consumed 75% Stool Size Moderate Small Stool Color Brown Brown Yellow Stool Consistency Soft # of times incontinent of 1 Bowels Weight 78.018 kg Intake & Output: Intake & Output 05/30/19 05/31/19 05/31/19 21:59 05:59 13:59 Intake Total 400 Output Total 1 3 Balance 399 -3 Weight 78.018 kg Intake: Oral 200 GI Tube Flush 200 Output: # of times incontinent of urine 1 3 Other: Meal Lunch Percent of Meal Consumed 75% Stool Size Moderate Small Stool Color Brown Brown Yellow Stool Consistency Soft # of times incontinent of 1 Bowels - Lab 05/31/19 04:00 05/31/19 04:00 Most recent lab results Calcium 9.3 mg/dl (8.6-10.4) 05/31/19 04:00 Phosphorus 3.6 mg/dL (2.7-4.5) 05/28/19 04:00 Magnesium 2.1 mg/dL (1.6-2.5) 05/28/19 04:00 Microbiology 05/31/19 09:40 Sputum - Expectorated Gram Stain - Final 05/31/19 09:40 Sputum - Expectorated Sputum Culture - Final 05/27/19 04:00 Blood Blood Culture - Preliminary 05/29/19 04:10 Blood Blood Culture - Preliminary 05/29/19 04:20 Blood Blood Culture - Preliminary 05/24/19 01:32 Blood Blood Culture - Final Staphylococcus aureus 05/27/19 03:50 Blood Blood Culture - Final Staphylococcus aureus 05/25/19 12:05 Blood Blood Culture - Final Staphylococcus aureus 05/24/19 01:46 Blood Blood Culture - Final Staphylococcus aureus 05/25/19 12:50 Blood Blood Culture - Final Staphylococcus aureus 05/24/19 10:46 Nasopharynx Respiratory Virus Panel (PCR) - Final 05/24/19 10:46 Nasopharynx Respiratory Panel (PCR) - Final 05/24/19 01:50 Nose - Both Right and Left MRSA (PCR) - Final Medications Active Medications: Acetaminophen (Tylenol) 650 mg PO Q4-6HP PRN; Protocol PRN Reason: Per Pain Protocol/Fever > 101 Acyclovir (Zovirax) 400 mg PO QDAY [facility]; Protocol Last Admin: 05/31/19 08:52 Dose: 400 mg Documented by: Admin: 05/30/19 08:31 Dose: 400 mg Documented by: [id number] Albuterol Sulfate (Ventolin) 1 puff INH Q4HP PRN PRN Reason: Shortness Of Breath Amlodipine Besylate (Norvasc) 10 mg PO DAILY [facility] Last Admin: 05/31/19 08:50 Dose: 10 mg Documented by: Admin: 05/30/19 08:33 Dose: 10 mg Documented by: [id number] Artificial Tears (Refresh Celluvisc) 1 each OU QIDP PRN PRN Reason: DRY EYES Atorvastatin Calcium (Lipitor) 40 mg PO QDAY [facility] Last Admin: 05/31/19 08:51 Dose: 40 mg Documented by: Admin: 05/30/19 08:31 Dose: 40 mg Documented by: VIOLET Bisacodyl (Dulcolax) 10 mg NH Q2-3DAYS PRN PRN Reason: Constipation Cefazolin Sodium (Ancef) 2 gm IV Q8H [facility] Last Admin: 05/31/19 05:03 Dose: 2 gm Documented by: Admin: 05/30/19 21:53 Dose: 2 gm Documented by: Admin: 05/30/19 14:36 Dose: 2 gm Documented by: Admin: 05/30/19 05:00 Dose: 2 gm Documented by: Admin: 05/29/19 21:49 Dose: 2 gm Documented by: Admin: 05/29/19 14:04 Dose: 2 gm Documented by: WILLARD Citalopram Hydrobromide (Celexa) 40 mg PO QDAY [facility] Last Admin: 05/31/19 08:52 Dose: 40 mg Documented by: Admin: 05/30/19 08:30 Dose: 40 mg Documented by: VIOLET Docusate Sodium (Colace) 100 mg PO BID [facility] Last Admin: 05/31/19 08:53 Dose: 100 mg Documented by: Admin: 05/30/19 21:44 Dose: Not Given Documented by: JM Non-Admin Reason: Patient Asleep Admin: 05/30/19 08:32 Dose: 100 mg Documented by: Admin: 05/29/19 21:48 Dose: 100 mg Documented by: JM Enalaprilat (Vasotec) 0 mg IV Q2HP PRN PRN Reason: Hypertension Enoxaparin Sodium (Lovenox) 40 mg SQ DAILY [facility] Last Admin: 05/31/19 08:49 Dose: 40 mg Documented by: Admin: 05/30/19 08:32 Dose: 40 mg Documented by: VIOLET Heparin Sodium (Porcine) (Heparin Flush) 2 ml IV Q12 [facility] Last Admin: 05/31/19 08:49 Dose: 2 ml Documented by: Admin: 05/30/19 21:48 Dose: 2 ml Documented by: Admin: 05/30/19 08:32 Dose: 2 ml Documented by: [id number] Admin: 05/29/19 21:48 Dose: 2 ml Documented by: JM Labetalol HCl (Trandate) 0 mg IV Q2HP PRN PRN Reason: Hypertension Lactobacillus Rhamnosus (Culturelle) 1 cap PO BID [facility] Last Admin: 05/31/19 08:51 Dose: 1 cap Documented by: Admin: 05/30/19 21:44 Dose: Not Given Documented by: JM Non-Admin Reason: Patient Asleep Admin: 05/30/19 08:31 Dose: 1 cap Documented by: [id number] Admin: 05/29/19 21:48 Dose: 1 cap Documented by: JM Levothyroxine Sodium (Synthroid) 100 mcg PO ACB [facility] Last Admin: 05/31/19 08:51 Dose: 100 mcg Documented by: Admin: 05/30/19 08:31 Dose: 100 mcg Documented by: VIOLET Lisinopril (Zestril) 10 mg PO DAILY [facility] Last Admin: 05/31/19 08:50 Dose: 10 mg Documented by: Admin: 05/30/19 08:30 Dose: 10 mg Documented by: [id number] Magnesium Hydroxide (Milk Of Magnesia) 30 ml PO DAILYP PRN PRN Reason: Constipation Ondansetron HCl (Zofran) 4 mg IV Q6HP PRN PRN Reason: Nausea And Vomiting Pantoprazole Sodium (Protonix) 40 mg PO BID [facility] Last Admin: 05/31/19 08:52 Dose: 40 mg Documented by: Admin: 05/30/19 21:44 Dose: Not Given Documented by: JM Non-Admin Reason: Patient Refused Admin: 05/30/19 08:30 Dose: 40 mg Documented by: [id number] Admin: 05/29/19 21:47 Dose: 40 mg Documented by: JM Polyethylene Glycol (Miralax) 17 gm PO DAILYP PRN PRN Reason: Constipation Prednisolone Acetate (Pred Forte Ophth Drops) 1 gtt OD Q48H [facility] Last Admin: 05/30/19 14:39 Dose: 1 gtt Documented by: [id number] Senna (Senokot) 2 tab PO HS [facility] Last Admin: 05/30/19 21:45 Dose: Not Given Documented by: JM Non-Admin Reason: Patient Asleep Admin: 05/29/19 21:48 Dose: 2 tab Documented by: JM Sodium Chloride (Saline Flush) 10 ml IV Q8 [facility] Last Admin: 05/31/19 05:03 Dose: 10 ml Documented by: Admin: 05/30/19 21:48 Dose: 10 ml Documented by: Admin: 05/30/19 14:36 Dose: 10 ml Documented by: Admin: 05/30/19 05:07 Dose: 10 ml Documented by: Admin: 05/29/19 22:09 Dose: Not Given Documented by: JM Non-Admin Reason: Duplicate Admin: 05/29/19 14:04 Dose: 10 ml Documented by: WILLARD Sodium Chloride (Saline Flush) 10 ml IV Q12 [facility] Admin: 05/31/19 08:53 Dose: 10 ml Documented by: Admin: 05/30/19 21:49 Dose: 10 ml Documented by: Admin: 05/30/19 08:33 Dose: 10 ml Documented by: Admin: 05/29/19 22:08 Dose: Not Given Documented by: JM Non-Admin Reason: Duplicate Sodium Chloride (Saline Flush) 10 ml IV UD PRN PRN Reason: FLUSH Sodium Chloride (Saline Flush) 10 ml IV Q12 [facility] Admin: 05/31/19 09:02 Dose: 10 ml Documented by: Admin: 05/30/19 21:44 Dose: Not Given Documented by: JM Non-Admin Reason: Duplicate Admin: 05/30/19 09:18 Dose: 10 ml Documented by: Admin: 05/29/19 22:08 Dose: Not Given Documented by: JM Non-Admin Reason: Duplicate Vitamin D (Vitamin D3) 4,000 unit PO QDAY [facility] Last Admin: 05/31/19 08:50 Dose: 4,000 unit Documented by: Admin: 05/30/19 08:30 Dose: 4,000 unit Documented by: VIOLET Assessment and Plan - Narrative A/P Narrative: A: 1. MSSA bacteremia: - Blood Cx +ve on 05/24 (2/2 sets), 05/25 (2/2 sets) and 05/27 - Blood Cx neg since 05/29 (1st day of antibiotic therapy) - likely source being MSSA translocation post-right hip steroid injection few weeks ago. - On IV Vanc for 1st 2 days of hospital stay, now on IV Cefazolin - TTE neg for IE 2. Epidural abscess of L5-S1 with osteomyelitis" sec to seeding from (1) - yesterday MRI T/L/S spine suggestive of "Small abscesses at the L5-S1 level. One is an epidural abscess on the right side, adjacent to the right side facet at L5-S1. The other is located in the posterior paraspinal space along the right side of the spinous process of L5. Inflammation and possible osteomyelitis in around the right facet joint at L5-S1" - no concerns for acute neurological deficit. Per Neurosurgery at [facility]; no need for surgical intervention Recommendations: - Continue IV Cefazolin 2 gm q8 hrs for 8 weeks (stop date of 07/24/19) - Consider PICC line placement and removal of right arm midline - will plan for LUÍS as OP (DR Oliva will schedule it) - Pt could be discharged from ID standpoint. ID clinic f/u 0n 06/11/19 at 8:15 am * Follow-up labs: CBC, BMP weekly ESR and CRP every other week - will repeat MRI L/S spine in around 6 weeks as OP to document resolution of epidural abscesses Alexis Louis MD Infectious diseases
--- NOTE | 2019-05-31 15:09 | XRay Report ---
HISTORY: PICC line insertion FINDINGS: A PICC line has been inserted through the left arm. The tip is near the boundary of the superior vena cava and right atrium. No pneumothorax, pleural effusion or widening of the mediastinum are present. There is mild generalized interstitial lung disease in both lungs. No lobar consolidation is present. The heart size is normal. The right diaphragm is mildly elevated. The previously seen PICC line which is looped in the right arm has been removed since 05/29/19. IMPRESSION: Well-positioned PICC line Nursing was called with the results Interpreted and Authenticated by: Jacob Mckenzie 05/31/19
[2019-05-31] MEDS: SENNOSIDES 1 TABLET PO SCH (21:58)
[2019-06-01] MEDS: ceFAZolin 1 GM VIAL IV SCH ×2 (00:49→05:34)
[2019-06-01] MEDS: 0.9 % SODIUM CHLORIDE 10 ML SYRINGE IV SCH ×3 (05:34→08:09)
[2019-06-01] MEDS: PANTOPRAZOLE 40 MG TABLET PO SCH (08:01)
[2019-06-01] MEDS: VITAMIN D3 1,000 UNIT TABLET PO SCH (08:01)
[2019-06-01] MEDS: DOCUSATE SODIUM 100 MG CAPSULE PO SCH (08:01)
[2019-06-01] MEDS: LEVOTHYROXINE 100 MCG TABLET PO SCH (08:01)
[2019-06-01] MEDS: LISINOPRIL 10 MG TABLET PO SCH (08:01)
[2019-06-01] MEDS: LACTOBACILLUS 1 CAPSULE PO SCH (08:01)
[2019-06-01] MEDS: CITALOPRAM 20 MG TABLET PO SCH (08:01)
[2019-06-01] MEDS: amLODIPine 10 MG TABLET PO SCH (08:01)
[2019-06-01] MEDS: ATORVASTATIN 40 MG TABLET PO SCH (08:01)
[2019-06-01] MEDS: ACYCLOVIR 400 MG TABLET PO SCH (08:01)
[2019-06-01] MEDS: ENOXAPARIN 40 MG/0.4 ML SYRINGE SQ SCH (08:02)
== END 2019-06-01 09:35 | DRG 871 ==
LOC: ED 17:53 → ICU 05-24 01:00 → MEDSUR 05-29 12:39
PROVIDERS: ADMIT Internal Medicine; ATTEND Internal Medicine